=== PATIENT | male | born 1960 | race Caucasian/White ===

== ENCOUNTER 2016-11-04 13:15 | Emergency (ER) | payer MEDICAID, OTHER ==
--- NOTE | 2016-11-04 13:14 | EDPHY ---
H & P Constitutional: Initial Vital Signs Temperature (C) 36.9 C 11/04/16 13:27 Heart Rate 108 H 11/04/16 13:27 Respiratory Rate 18 11/04/16 13:27 Blood Pressure 120/71 11/04/16 13:27 O2 Sat (%) 90 L 11/04/16 13:27 O2 Delivery Mode Room Air Allergies/Adverse Reactions: No Known Allergies Allergy (Unverified 10/27/14 20:52) Home Medications: Medication Instructions Recorded Paliperidone [Invega 9mg ER (*)] 9 mg PO DAILY #30 tab.er 11/12/14 Lisinopril [Zestril 10 mg (*)] 10 mg PO DAILY #30 tab 02/24/15 Paliperidone Palmitate [Invega 156 mg IM Q28D #2 syr 02/24/15 Sustenna (*)] Paliperidone [Invega 9mg ER (*)] 9 mg PO DAILY #30 tab.er 02/24/15 Medical Decision Making ED Course/Re-evaluation: CHIEF COMPLAINT: Psychiatric evaluation, AMS HISTORY OF PRESENT ILLNESS: The patient is a 56y/o male, with a history of schizophrenia, arriving via EMS for altered mentation. Per EMS, his parents found him staring at wall and chain-smoking in his apartment today. He would not respond to external stimuli apart from pain so they contacted EMS. He was unable to follow commands and not cooperative and required Haldol and Versed to keep him safe during transport as he was trying to climb out of the ambulance. His parents told EMS one of the patient's medications was changed yesterday, but they are unsure which medication. The patient is unable to contribute to history due to altered mentation. REVIEW OF SYSTEMS: Patient unable to contribute due to presentation. PHYSICAL EXAM: General Appearance: Alert, mumbling, unable to converse or follow commands Head: Atraumatic without scalp tenderness or obvious injury Eyes: Pupils equal, round, reactive to light and accommodation, EOMI, no trauma , no injection. Nose: Atraumatic, no rhinorrhea, clear. Throat: Mucus membranes moist. Neck: Supple, atraumatic Respiratory: No retractions, no distress, no wheezes, and no accessory muscle use. Lungs are clear to auscultation bilaterally. Cardiovascular: Regular rate and rhythm, no murmurs, rubs, or gallops. Good capillary refill all extremities. Gastrointestinal: Abdomen is soft, non-distended, no masses, no rebound, no guarding, no peritoneal signs. Musculoskeletal: Normal active ROM of all extremities, atraumatic. Neurological: Alert, mumbling, unable to converse or follow commands, moving all 4 extremities equally. Skin: No rashes, good turgor, no nodules on palpation. Past medical history: Schizophrenia Past surgical history: unknown Family history: unknown Social history: Lives in [place], daily smoker. DIFFERENTIAL DIAGNOSIS: The differential diagnosis for the patient's symptoms included but was not limited to schizophrenia, psychosis, functional and major depression, situational depression, medication side effect, drugs, and alcohol abuse. MEDICAL DECISION MAKING: Patient is in no acute distress and is hemodynamically stable. Detainer placed. We are awaiting psychiatric team's evaluation. Patient has known history of psychiatric disorders and is here for evaluation. Principal Software Engineer recommended in-patient care. Placement pending. (Jaquan Cosme) Other Provider: 10:45 a.m. patient accepted at [facility] by Dr. Villegas. Transfer paperwork completed. (Indio Bo) Care Turn Over: 2300 Care assumed by me pending placement. 0700 patient signed out to Dr. Bo pending placement. No issues during my care this patient overnight (Willie Thomas) - Data Points Laboratory Results: Laboratory Results 11/04/16 13:45 11/04/16 13:25 Departure - Departure Disposition: Other Psych, Not [facility] Clinical Impression: Chronic paranoid schizophrenia Condition: Fair Referrals: Patient,NotPresent [Unknown] - As per Instructions Report Scribed for: Jaquan Cosme Report Scribed by: Luz Baires Date of Report: 11/04/16 Time of Report: 13:36
[2016-11-04 13:51] LABS: ANION GAP 16 mEq/L (8-16); CALCIUM 9.3 mg/dL (8.5-10.4); CARBON DIOXIDE 18 mEq/l (22-31); CHLORIDE 103 mEq/L (97-110); CREATININE 1.1 mg/dL (0.7-1.3); ETHANOL SERUM < 10 mg/dL (0-10); GLOMERULAR FILTRATION RATE > 60; GLUCOSE 110 mg/dL (70-100); POTASSIUM 3.8 mEq/L (3.5-5.2); SALICYLATE < 1.0 mg/dL (2.0-20.0); SODIUM 137 mEq/L (134-144)
[2016-11-04 13:54] LABS: % IMMATURE GRANULYOCYTES 0.3 % (0.0-1.1); ABSOLUTE IMMATURE GRANULOCYTES 0.02 10^3/uL (0.00-0.10); ADD DIFF? NO; ADD MORPH? NO; ADD SCAN? NO; ATYPICAL LYMPHOCYTE FLAG 10 (0-99); FRAGMENT RBC FLAG 0 (0-99); HEMATOCRIT 45.1 % (40.0-51.0); HEMOGLOBIN 15.5 g/dL (13.7-17.5); LEFT SHIFT FLG 0 (0-99); LIPEMIA HEMOLYSIS FLAG 90 (0-99); MEAN CELL HEMOGLOBIN 29.1 pg (27.9-34.1); MEAN CELL HEMOGLOBIN CONCENTR. 34.4 g/dL (32.4-36.7); MEAN CELL VOLUME 84.8 fL (81.5-99.8); MEAN PLATELET VOLUME 9.2 fL (8.7-11.7); PLATELET CLUMPS FLAG 0 (0-99); PLATELET COUNT 211 10^3/uL (150-400); RED BLOOD CELL COUNT 5.32 10^6/uL (4.40-6.38); RED CELL DISTRIBUTION WIDTH 12.3 % (11.5-15.2)
[2016-11-05 08:15] VITALS: RESP 16; TEMP 98.2
[2016-11-05 14:36] VITALS: BP 102/73; PULSE 95; O2SAT 96
== END 2016-11-05 14:32 ==
LOC: EDUNIT#
DX: F20.0 Paranoid schizophrenia (principal); F17.200 Nicotine dependence, unspecified, uncomplicated
CPT/HCPCS: 80305; G0480

== ENCOUNTER 2018-03-05 18:00 | Inpatient (IN) | payer MEDICAID, OTHER ==
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
[2018-03-05 18:50] LABS: PLATELET COUNT 253 10^3/uL (150-400)
[2018-03-06] MEDS ORDERED: OLANZapine DISINTEGR 5 MG TAB PO PRN (01:00)
[2018-03-06] MEDS ORDERED: NICOTINE POLACRILEX 2 MG GUM B PRN (01:00)
[2018-03-06] MEDS ORDERED: LORazepam 0.5 MG TAB PO PRN (01:00)
[2018-03-06] MEDS ORDERED: ACETAMINOPHEN 325 MG TAB PO PRN (01:00)
[2018-03-06] MEDS ORDERED: MAG HYDROX/AL HYDROX/SIMETH 30 ML UDCUP PO PRN (01:00)
[2018-03-06] MEDS ORDERED: MAGNESIUM HYDROXIDE 30 ML UDCUP PO PRN (01:00)
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
--- NOTE | 2018-03-06 17:21 | PDMN ---
Medical Necessity Medical necessity: [facility] [id number] Schizophrenia Spectrum Disorders, Adult: Inpatient Care: 57 yo w/ schizophrenia, paranoid type, chronic w/ acute exacerbation; homelessness, cannabis use d/o, on M1 hold.
--- NOTE | 2018-03-07 15:01 | ASMTCMCOM ---
CM Note CM Note Notes: The patient refused to participate in clinical treatment team rounds; reason unknown. According to [facility] staff, he rated himself zero out of ten on the suicide precaution scale and is reporting increased sleep. The patient reported that his parents had him "put in here." He is participating in groups and meal times. The patient reported that he is an open client with [facility]. His providers are Fam Glass, and Dr. Roy. This conventional mortgage underwriter will coordinate treatment and follow up care with [facility] Inpatient LiaisonYasmin. Date Signed: 03/07/2018 03:00 PM Electronically Signed By:Anay Ambrose
--- NOTE | 2018-03-07 16:55 | SOAPPROG ---
SOAP Progress Note Assessment/Plan: Assessment: Plan: Subjective: Pt seen, discussed with staff. Sleeping most of the day today, refused to attend Treatment Team meeting. REmains pleasant and interactive, though rather disorganized and pressured. Compliant with treatments. Objective: Vital Signs Temp Pulse Resp BP Pulse Ox 36.6 C 90 15 121/79 H 97 03/06/18 01:10 03/07/18 06:00 03/07/18 06:00 03/07/18 06:00 03/07/18 06:00 MSE: Calm, appears sleepy. Affect is slightly elevated, jovial, though less so than before. Mood is "good." TP is linear at times, though tangential at others. TC reveals no mention of delusions or halluc's. - Time Spent With Patient Time Spent With Patient: 15" ICD10 Worksheet Patient Problems: Problems Problem Status Onset Schizophrenia Acute Cannabis abuse Acute Schizo-affective psychosis Acute
--- NOTE | 2018-03-08 15:29 | ASMTCMCOM ---
CM Note CM Note Notes: The patient reported that is doing well as evidenced by "eating and sleeping." The patient has poor ADLs. The patient was observed pacing the hallway of the unit. The patient is under the impression that his mother and father are working to find him stable housing although the patient has not spoken with them since his hospital admission. Date Signed: 03/08/2018 03:28 PM Electronically Signed By:Anay Ambrose
--- NOTE | 2018-03-08 16:32 | SOAPPROG ---
SOAP Progress Note Assessment/Plan: Assessment: Plan: 03/08/18 16:33 Psychosis: SOme improvement. [facility]. P's informs us he is not on a certification at this time. Will allow him to sign in voluntarily and continue d/c planning. Subjective: Pt seen, discussed with staff. Pacing in halls, appears more agitated. He is bright and interactive when I approach him, however. Noted to pace most of morning, talking to himself. No behavioral issues noted. Objective: Vital Signs Temp Pulse Resp BP Pulse Ox 36.4 C 81 16 122/89 H 93 03/08/18 06:00 03/08/18 06:00 03/08/18 06:00 03/08/18 06:00 03/08/18 06:00 MSE: Moderately agitated, appropriately interactive. Affect is elevated, expansive. Mood is "great." TP is tangential. TC reveals some grandiose thoughts, internal preoccupation with possible RIS. - Time Spent With Patient Time Spent With Patient: 15" ICD10 Worksheet Patient Problems: Problems Problem Status Onset Schizophrenia Acute Cannabis abuse Acute Schizo-affective psychosis Acute
--- NOTE | 2018-03-09 14:40 | ASMTBHFAM ---
Notes Note: Notes: This marketing writer checked in with Chris's father, also named Chris, who reported that he recently spoke with Kayla Beraux ([phone], [phone]. [phone]) from [facility]. Per Kayla, there is a pretty good chance the patient could get another place. He mentioned the reason the patient was "kicked out of there was because it is nearby the homeless [facility]ci and a bunch of homeless people invaded his apartment and took over more or less." He said he might have housing available in a different location that might be more appropriate for the patient. The patient's behavioral issues decrease when he is medicated and removing him from the environment may additionally support his success. The patient's parents, Chris and Renetta Dove, visited the patient on the unit today. The patient reported the visited went well. This marketing writer spoke with Kayla, who reported that the patient needs to find a way to dispose of the remainder of belongings in his apartment or sign a form allowing [facility] to dispose of them in order to avoid the eviction process. The patient reported that he did not want to take a shower; he stated "If you had been caught between two streams of water [place] you wouldn't want to shower either." He reported that he feels like he is "always late for the next shower" and that the "layer of dirt and oil protects" him. Date Signed: 03/09/2018 02:40 PM Electronically Signed By:Anay Ambrose
--- NOTE | 2018-03-09 16:16 | SOAPPROG ---
SOAP Progress Note Assessment/Plan: Assessment: Plan: 03/08/18 16:33 Psychosis: SOme improvement. [facility]. [facility]'s informs us he is not on a certification at this time. Will allow him to sign in voluntarily and continue d/c planning. 03/09/18 16:16 Psychosis: May be approaching baseline. Will CCM, finalize d/c plan. Subjective: Pt seen, discussed with staff. Friendly and interactive. Offers no c/o's. Agreeable to plan to continue current meds and await assistance with housing. No behavioral issues. Objective: Vital Signs Temp Pulse Resp BP Pulse Ox 36.7 C 87 16 123/86 H 94 03/09/18 06:00 03/09/18 06:00 03/09/18 06:00 03/09/18 06:00 03/09/18 06:00 MSE: Marginally groomed, pleasant and cooperative. Affect is euthymic, almost elevated. Mood is "good." TP is linear for brief periods, then disorganized. TC reveals continued poor reality testing. - Time Spent With Patient Time Spent With Patient: 15" ICD10 Worksheet Patient Problems: Problems Problem Status Onset Schizophrenia Acute Cannabis abuse Acute Schizo-affective psychosis Acute
--- NOTE | 2018-03-10 13:52 | ASMTCMCOM ---
CM Note CM Note Notes: Pt. reports feeling "good". Pt. stated he slept "good, good, good". Pt. reports eating well and attending groups. Pt. stated he is going to focus on "exercise and resting instead [of groups]". Pt. stated he is due to get his long acting injectable on 03/22/18. Pt. stated currently his old assisted living manager is looking for a new apartment for pt. Pt. denied SI, HI, AVH and paranoia. Pt. presents as alert, calm, good eye contact, cooperative, possibly delayed, malodorous, and with a mostly pleasant demeanor. Staff report pt. sleeping 12 hours, not attending groups, and being medication compliant. Date Signed: 03/10/2018 01:52 PM Electronically Signed By:Lakeisha Hollis
--- NOTE | 2018-03-10 16:23 | SOAPPROG ---
SOAP Progress Note Assessment/Plan: Assessment: Per Dr. Zuniga's most recent note: 03/08/18 16:33 Psychosis: SOme improvement. CCM. [facility]'s informs us he is not on a certification at this time. Will allow him to sign in voluntarily and continue d/c planning. 03/09/18 16:16 Psychosis: May be approaching baseline. Will CCM, finalize d/c plan. Subjective: Pt seen, discussed with staff. Friendly and interactive. Offers no c/o's. Agreeable to plan to continue current meds and await assistance with housing. No behavioral issues. Plan: 03/10/18 16:19 1. Patient continues to be very agreeable, pleasant and easily engaged in conversation. 2. Patient not performing ADL's adequately. Says he doesn't want to be clean. 3. Slept 12 hrs and ate 100% of meals. 4. Recent progress notes indicate patient likely at baseline. May d/c on Monday. 5. F/U will be with Dr. Roy at [facility]. Next CARIAS on 03/22/18. Subjective: Patient is extremely talkative. He has not showered or bathed since admission and remains disheveled and malodorous. When asked by staff about his hygiene, patient says, "I like to be dirty." He is not attending groups or participating in milieu activities. He says he's here to focus on "exercise and rest." Patient denies AH/VH and denies SI/HI. MD does not observe any evidence of paranoia or responding to internal/external stimuli. Objective: Vital Signs Temp Pulse Resp BP Pulse Ox 36.5 C 79 14 116/78 93 03/10/18 06:00 03/10/18 06:00 03/10/18 06:00 03/10/18 06:00 03/10/18 06:00 MSE: Affect: Pleasant, cheerful Mood: "Good" TP: Tangential TC: Denies any SI/HI, no paranoia Perception: Denies any AH/VH, no RIS Insight/Judgment: Poor a/e/b refusal to shower/clean - Time Spent With Patient Time Spent With Patient: 15" - Pending Discharge Pending Discharge Within 24 Hours: No Pending Discharge Within 48 Hours: Yes Pending Discharge Date: 03/12/18 (Possible d/c on Monday) Pending Discharge Time: 11:00 ICD10 Worksheet Patient Problems: Problems Problem Status Onset Schizophrenia Acute Cannabis abuse Acute Schizo-affective psychosis Acute
--- NOTE | 2018-03-11 16:31 | SOAPPROG ---
SOAP Progress Note Assessment/Plan: Assessment: Per Dr. Zuniga's most recent note: 03/08/18 16:33 Psychosis: SOme improvement. CCM. [facility]'s informs us he is not on a certification at this time. Will allow him to sign in voluntarily and continue d/c planning. 03/09/18 16:16 Psychosis: May be approaching baseline. Will CCM, finalize d/c plan. Subjective: Pt seen, discussed with staff. Friendly and interactive. Offers no c/o's. Agreeable to plan to continue current meds and await assistance with housing. No behavioral issues. Plan: 03/10/18 16:19 1. Patient continues to be very agreeable, pleasant and easily engaged in conversation. 2. Patient not performing ADL's adequately. Says he doesn't want to be clean. 3. Slept 12 hrs and ate 100% of meals. 4. Recent progress notes indicate patient likely at baseline. May d/c on Monday. 5. F/U will be with Dr. Roy at [facility]. Next CARIAS on 03/22/18. 03/11/18 16:28 1. Patient isolates in his room most of the day. 2. Patient still refuses to shower or clean himself. He is quite malodorous. 3. Sleeping a lot on unit (13 hrs last night). Eating well (100%). 4. Patient's only medication is IM prolixin q3wks. Next dose supposedly due on 03/22. Does not take any PO meds. 5. [facility] working on finding new apartment for patient after recent eviction. Currently homeless. Subjective: Patient sitting in his room staring out window. He has been extremely talkative and generally pleasant to interact with. He told staff his goals were to "eat, sleep and exercise." He has been sleeping a lot (> 12 hrs last 2 nights). He says he needs to "catch up" on his sleep. He c/o disturbing dream last night about his twin brother. He says it was "bittersweet" b/c he misses his brother. Patient's manager rn case through [facility] is trying to find him another apartment b/c he is being evicted from his current one. Patient says he doesn't take any PO meds b/c they don't "work for me." He is only on CARIAS Prolixin. Objective: Vital Signs Temp Pulse Resp BP Pulse Ox 37.0 C 68 14 126/88 H 95 03/11/18 06:00 03/11/18 06:00 03/11/18 06:00 03/11/18 06:00 03/11/18 06:00 MSE: Affect: Very pleasant and talkative Mood: "OK" TP: Disorganized, loose TC: Denies any SI/HI, no paranoid delusion Perception: Denies any AH/VH Insight/Judgment: Improving - Time Spent With Patient Time Spent With Patient: 15" - Pending Discharge Pending Discharge Within 24 Hours: Yes Pending Discharge Date: 03/12/18 (Possible d/c on Monday) Pending Discharge Time: 11:00 ICD10 Worksheet Patient Problems: Problems Problem Status Onset Schizophrenia Acute Cannabis abuse Acute Schizo-affective psychosis Acute
--- NOTE | 2018-03-12 14:22 | ASMTCMCOM ---
CM Note CM Note Notes: Pt. reports "doing okay". Pt. stated he slept "good, good". Pt. stated he is eating well and attending groups. Pt. reports no issues with his current medications. Pt. stated his goal for the day is to "eat, sleep, & exercise". Pt. stated he exercises by walking. CC offered pt. new clothes, but pt stated he was fine in scrubs. Pt stated he has not heard any updates on his housing situations. Pt. stated he would like to stay in [place], adding he has always lived in [place],. Pt. denied SI, HI, AVH and paranoia. Pt. stated he is a twin, adding his brother two years ago. Pt. stated he dreamt about his brother last night, stating his brother was working outside, and did not have a head. Pt. stated he liked seeing his brother, but made him miss him. Pt. presents as alert, upbeat, good eye contact, malodorous laughing at times, and cooperative. Staff report pt. sleeping 13 hours, being medication compliant, and not willing to shower or change clothes. Date Signed: 03/11/2018 02:55 PM Electronically Signed By:Lakeisha Hollis
--- NOTE | 2018-03-12 15:38 | SOAPPROG ---
SOAP Progress Note Assessment/Plan: Assessment: Plan: 03/08/18 16:33 Psychosis: SOme improvement. [facility]. [facility]'s informs us he is not on a certification at this time. Will allow him to sign in voluntarily and continue d/c planning. 03/09/18 16:16 Psychosis: May be approaching baseline. Will [facility], finalize d/c plan. 03/12/18 15:40 Psychosis: No change. CCM. Continue d/c planning. Subjective: Pt seen, discussed with staff, chart reviewed. Reports feeling "great." Remains rather activated, talkative, though compliant and pleasant. Reviewed plan to seek transitional housing for him. He is agreeable to this. Objective: Vital Signs Temp Pulse Resp BP Pulse Ox 36.4 C 77 14 119/71 97 03/12/18 06:00 03/12/18 06:00 03/12/18 06:00 03/12/18 06:00 03/12/18 06:00 MSE: Moderately activated, coop, interactive. Speech is voluminous, rapid, pressured. Affect is slightly elevated. Mood is "good.' TP is linear at times , tangential at others. TC reveals no overt psychosis. - Time Spent With Patient Time Spent With Patient: 15" ICD10 Worksheet Patient Problems: Problems Problem Status Onset Schizophrenia Acute Cannabis abuse Acute Schizo-affective psychosis Acute
--- NOTE | 2018-03-14 11:45 | ASMTBHDC ---
Notes Note: Notes: Pt. reports feeling "good". Pt. stated he slept "good, good, good". Pt. reports eating well and having no issues with his medications. Pt. stated he is not attending groups, but "rather walk around and get rest". Pt. reports no issues while on the unit. Pt. stated he has not spoke with the [employer] yet. Pt. denied having any goals for day, stating "just the same old". Pt. denied SI, HI, AVH and paranoia. Pt. presents as alert, upbeat, friendly, good eye contact, malodorous and cooperative. Staff report pt. sleeping 12 hours, not attending groups, and being medication compliant. Date Signed: 03/14/2018 11:45 AM Electronically Signed By:Lakeisha Hollis
--- NOTE | 2018-03-14 11:50 | ASMTBHDC ---
Notes Note: Notes: CC spoke with Pt's engine manager, Kayla Booth [phone]. Kayla stated pt. is being asked to leave his apartment. Kayla requested a signed letter from pt. giving permission to remove his furniture from the apartment and stating the pt. have vacated the apartment. Kayla stated without this letter the pt. will have to be evicted. Pt. signed the needed letter and it was faxed to Kayla. Kayla stated [facility] is not willing to re-rent to the pt. Pt. is now homeless. CC reached out to pt's housing caser shoe parts, Smith Steele ([phone]) and left a message to please call back. Date Signed: 03/14/2018 11:49 AM Electronically Signed By:Lakeisha Hollis
--- NOTE | 2018-03-14 15:19 | SOAPPROG ---
SOAP Progress Note Assessment/Plan: Assessment: Plan: 03/08/18 16:33 Psychosis: SOme improvement. CCM. [facility]'s informs us he is not on a certification at this time. Will allow him to sign in voluntarily and continue d/c planning. 03/09/18 16:16 Psychosis: May be approaching baseline. Will CCM, finalize d/c plan. 03/12/18 15:40 Psychosis: No change. CCM. Continue d/c planning. 03/14/18 15:19 Psychosis: Stable. CCM. Subjective: LATE ENTRY FOR 03/13/18. Pt seen, discussed with staff, interviewed in Treatment Team meeting. He states he is happy to be in the hospital and does not believe he can care for himself on his own. Compliant with all therapies, though continues to refuse to shower. No behavioral issues. Objective: Vital Signs Temp Pulse Resp BP Pulse Ox 36.6 C 80 16 120/75 94 03/14/18 06:00 03/14/18 06:00 03/14/18 06:00 03/14/18 06:00 03/14/18 06:00 MSE: Calm, coop. Affect bright, smiling, stable. Mood is "good." TP is linear at times, disorganized at others. TC reveals no overt psychosis. - Time Spent With Patient Time Spent With Patient: 25" ICD10 Worksheet Patient Problems: Problems Problem Status Onset Schizophrenia Acute Cannabis abuse Acute Schizo-affective psychosis Acute
--- NOTE | 2018-03-14 15:23 | SOAPPROG ---
SOAP Progress Note Assessment/Plan: Assessment: Plan: 03/08/18 16:33 Psychosis: SOme improvement. [facility]. [facility]'s informs us he is not on a certification at this time. Will allow him to sign in voluntarily and continue d/c planning. 03/09/18 16:16 Psychosis: May be approaching baseline. Will [facility], finalize d/c plan. 03/12/18 15:40 Psychosis: No change. [facility]. Continue d/c planning. 03/14/18 15:19 Psychosis: Stable. CCM. 03/14/18 15:22 Psychosis: Stable. CCM. Continue d/c planning. Pt remains gravely disabled due to chronic mental illness and is not able to safely d/c to own recognizance. Would also not be able to tolerate [facility] environment. Subjective: Pt seen, discussed with staff. Reports feeling "really good." Smiling and happy. No c/o's. Objective: Vital Signs Temp Pulse Resp BP Pulse Ox 36.6 C 80 16 120/75 94 03/14/18 06:00 03/14/18 06:00 03/14/18 06:00 03/14/18 06:00 03/14/18 06:00 MSE: Poorly groomed, malodorous. Affect is elevated with almost a hebephrenic grin. Mood is "good." TP is generally linear. TC reveals no overt psychosis. - Time Spent With Patient Time Spent With Patient: 15" ICD10 Worksheet Patient Problems: Problems Problem Status Onset Schizophrenia Acute Cannabis abuse Acute Schizo-affective psychosis Acute
--- NOTE | 2018-03-15 17:42 | SOAPPROG ---
SOAP Progress Note Assessment/Plan: Assessment: Plan: 03/08/18 16:33 Psychosis: SOme improvement. CCM. P's informs us he is not on a certification at this time. Will allow him to sign in voluntarily and continue d/c planning. 03/09/18 16:16 Psychosis: May be approaching baseline. Will CCM, finalize d/c plan. 03/12/18 15:40 Psychosis: No change. CCM. Continue d/c planning. 03/14/18 15:19 Psychosis: Stable. CCM. 03/14/18 15:22 Psychosis: Stable. CCM. Continue d/c planning. Pt remains gravely disabled due to chronic mental illness and is not able to safely d/c to own recognizance. Would also not be able to tolerate retirement environment. 03/15/18 17:41 Psychosis: Stable. Doing well. CCM. Subjective: Pt seen, discussed with staff. Reports feeling "just great." Upbeat and friendly. Continues to "wait for a plan." No behavioral issues. Objective: Vital Signs Temp Pulse Resp BP Pulse Ox 36.3 C 90 20 118/83 H 95 03/15/18 06:00 03/15/18 06:00 03/15/18 06:00 03/15/18 06:00 03/15/18 06:00 MSE: Poorly groomed, malodorous. Affect is bright, elevated. Mood is "good." TP is tangential. TC reveals continued poor reality testing. - Time Spent With Patient Time Spent With Patient: 15" ICD10 Worksheet Patient Problems: Problems Problem Status Onset Schizophrenia Acute Cannabis abuse Acute Schizo-affective psychosis Acute
--- NOTE | 2018-03-16 12:19 | ASMTBHDC ---
Notes Note: Notes: CC left another message for Smithfoster Hyltons ([phone]) asking for a call back VENANCIO. Date Signed: 03/16/2018 12:18 PM Electronically Signed By:Mayda Levy
--- NOTE | 2018-03-16 12:35 | ASMTCMCOM ---
CM Note CM Note Notes: CC checked in with ct. who reported that he is doing fine. Ct. is still pretty malodorous but is pleasant and cooperative. He reported that he lost his housing and is waiting to find out what housing options he may have. Asked him if he can stay with his parents until finding a place to live and he wasn't sure if this is possible. He said that he can use his parents phone to call properties Date Signed: 03/16/2018 12:34 PM Electronically Signed By:Mayda Levy
--- NOTE | 2018-03-16 16:17 | SOAPPROG ---
SOAP Progress Note Assessment/Plan: Assessment: Plan: 03/08/18 16:33 Psychosis: SOme improvement. [facility]. P's informs us he is not on a certification at this time. Will allow him to sign in voluntarily and continue d/c planning. 03/09/18 16:16 Psychosis: May be approaching baseline. Will [facility], finalize d/c plan. 03/12/18 15:40 Psychosis: No change. CCM. Continue d/c planning. 03/14/18 15:19 Psychosis: Stable. CCM. 03/14/18 15:22 Psychosis: Stable. CCM. Continue d/c planning. Pt remains gravely disabled due to chronic mental illness and is not able to safely d/c to own recognizance. Would also not be able to tolerate assisted environment. 03/15/18 17:41 Psychosis: Stable. Doing well. CCM. 03/16/18 16:18 Psychosis: Stable. [facility]. Subjective: Pt seen, discussed with staff. Remains cooperative, pleasantly interactive with others. No behavioral issues except continued refusal to shower. Objective: Vital Signs Temp Pulse Resp BP Pulse Ox 36.8 C 76 16 108/69 94 03/16/18 06:00 03/16/18 06:00 03/16/18 06:00 03/16/18 06:00 03/16/18 06:00 MSE: Calm, pleasant and cooperative. AFfect is bright, smiling. Mood is "good." TP generally linear. TC reveals no overt psychosis. No SI/HI/. - Time Spent With Patient Time Spent With Patient: 15" ICD10 Worksheet Patient Problems: Problems Problem Status Onset Schizophrenia Acute Cannabis abuse Acute Schizo-affective psychosis Acute
--- NOTE | 2018-03-17 17:50 | SOAPPROG ---
SOAP Progress Note Assessment/Plan: Assessment: Per Dr. Zuniga's most recent note: 03/12/18 15:40 Psychosis: No change. CCM. Continue d/c planning. 03/14/18 15:19 Psychosis: Stable. CCM. 03/14/18 15:22 Psychosis: Stable. CCM. Continue d/c planning. Pt remains gravely disabled due to chronic mental illness and is not able to safely d/c to own recognizance. Would also not be able to tolerate [facility] environment. 03/15/18 17:41 Psychosis: Stable. Doing well. CCM. 03/16/18 16:18 Psychosis: Stable. CCM. Subjective: Pt seen, discussed with staff. Remains cooperative, pleasantly interactive with others. No behavioral issues except continued refusal to shower. PLAN: 03/17/18 17:47 1. No change from last weekend. Stable. 2. Pleasant and talkative. No acute psychotic or mood sxs. 3. Next Prolixin IM due 03/20/18. 4. Waiting on placement. Subjective: Patient remains calm, pleasant and eager to socialize and talk to peers/staff. He denies any acute psychotic or mood related sxs. He denies AH/VH, SI/HI. Objective: Vital Signs Temp Pulse Resp BP Pulse Ox 36.6 C 84 16 109/76 95 03/17/18 06:00 03/17/18 06:00 03/17/18 06:00 03/17/18 06:00 03/17/18 06:00 MSE: Affect: Pleasant, euthymic Mood: "Good" TP: Tangential TC: Denies any SI/HI Insight/Judgment: Fair - Time Spent With Patient Time Spent With Patient: 15" - Pending Discharge Pending Discharge Within 24 Hours: No Pending Discharge Within 48 Hours: No ICD10 Worksheet Patient Problems: Problems Problem Status Onset Schizophrenia Acute Cannabis abuse Acute Schizo-affective psychosis Acute
--- NOTE | 2018-03-18 13:42 | ASMTCMCOM ---
LIVIA Note CM Note Notes: The patient is not attending groups. He reported meeting his "goals: completing meals and getting good sleep." Date Signed: 03/18/2018 01:42 PM Electronically Signed By:Anay Ambrose
--- NOTE | 2018-03-18 18:10 | SOAPPROG ---
SOAP Progress Note Assessment/Plan: Assessment: Per Dr. Zuniga's most recent note: 03/12/18 15:40 Psychosis: No change. CCM. Continue d/c planning. 03/14/18 15:19 Psychosis: Stable. CCM. 03/14/18 15:22 Psychosis: Stable. CCM. Continue d/c planning. Pt remains gravely disabled due to chronic mental illness and is not able to safely d/c to own recognizance. Would also not be able to tolerate detention environment. 03/15/18 17:41 Psychosis: Stable. Doing well. CCM. 03/16/18 16:18 Psychosis: Stable. [facility]. Subjective: Pt seen, discussed with staff. Remains cooperative, pleasantly interactive with others. No behavioral issues except continued refusal to shower. PLAN: 03/17/18 17:47 1. No change from last weekend. Stable. 2. Pleasant and talkative. No acute psychotic or mood sxs. 3. Next Prolixin IM due 03/20/18. 4. Waiting on placement. 03/18/18 18:07 1. Reports "good sleep." 2. Not attending groups. Has not showered or washed his clothes since admission. 3. Due for next Prolixin IM on 03/20/18 4. Waiting for [facility] to find him an apartment. Subjective: Patient reports he is getting "good sleep" while in hospital. He said his goals were "sleep, eat and exercise." He slept 11 hrs last night and has been eating 100% of meals. He refuses to attend group therapy and has very poor hygiene, but says he "never takes a shower" and rarely washes his clothes at home. He is waiting for [facility] to find him a new apartment b/c he got "kicked" out of his last one. Objective: Vital Signs Temp Pulse Resp BP Pulse Ox 36.5 C 76 16 101/70 93 03/18/18 06:00 03/18/18 06:00 03/18/18 06:00 03/18/18 06:00 03/18/18 06:00 MSE: Affect: Smiling, euthymic Mood: "OK" TP: Tangential TC: Denies SI/HI Insight/Judgment: Poor - Time Spent With Patient Time Spent With Patient: 15" - Pending Discharge Pending Discharge Within 24 Hours: No Pending Discharge Within 48 Hours: No ICD10 Worksheet Patient Problems: Problems Problem Status Onset Schizophrenia Acute Cannabis abuse Acute Schizo-affective psychosis Acute
--- NOTE | 2018-03-19 15:01 | SOAPPROG ---
SOAP Progress Note Assessment/Plan: Assessment: Plan: 03/08/18 16:33 Psychosis: SOme improvement. [facility]. [facility]'s informs us he is not on a certification at this time. Will allow him to sign in voluntarily and continue d/c planning. 03/09/18 16:16 Psychosis: May be approaching baseline. Will [facility], finalize d/c plan. 03/12/18 15:40 Psychosis: No change. CCM. Continue d/c planning. 03/14/18 15:19 Psychosis: Stable. CCM. 03/14/18 15:22 Psychosis: Stable. CCM. Continue d/c planning. Pt remains gravely disabled due to chronic mental illness and is not able to safely d/c to own recognizance. Would also not be able to tolerate [place] [facility] environment. 03/15/18 17:41 Psychosis: Stable. Doing well. CCM. 03/16/18 16:18 Psychosis: Stable. CCM. 03/19/18 15:00 Psychosis: No change. CCM. Gets Prolixin dec tomorrow. Continue d/c planning. Subjective: Pt seen, discussed with staff, chart reviewed. No change in behaviors. Doing well in milieu, keeping mainly to himself with a high level of internal preoccupation. Always pleasant and engaging when spoken to, however. Objective: Vital Signs Temp Pulse Resp BP Pulse Ox 36.6 C 76 16 129/76 H 93 03/19/18 06:00 03/19/18 06:00 03/19/18 06:00 03/19/18 06:00 03/19/18 06:00 MSE: Poorly groomed, malodorous. Activity and speech are nl. Affect is bright , smiling. Mood is "good." TP is linear at times, though tangential eventually. TC reveals disorganized though and RIS. ICD10 Worksheet Patient Problems: Problems Problem Status Onset Schizophrenia Acute Cannabis abuse Acute Schizo-affective psychosis Acute
[2018-03-20] MEDS ORDERED: FLUPHENAZINE DECANOATE 25 MG/ML 5 ML VIAL IM ONE (09:00)
--- NOTE | 2018-03-20 10:56 | ASMTCMCOM ---
CM Note CM Note Notes: CC checked in with ct. He was initially pleasant and reported that he is doing fine. Ct. became upset when this CC spoke with him about his heygiene and suggested he takes a shower and change his clothes. Ct. said that he hates water and that he doesn't want to change his clothes. When CC noted that ct. hygiene might be bothering others on the unit he pointed out that he keeps to himself in his room. Date Signed: 03/20/2018 10:56 AM Electronically Signed By:Mayda Levy
--- NOTE | 2018-03-20 20:42 | SOAPPROG ---
SOAP Progress Note Assessment/Plan: Assessment: Plan: 03/08/18 16:33 Psychosis: SOme improvement. [facility]. [facility]'s informs us he is not on a certification at this time. Will allow him to sign in voluntarily and continue d/c planning. 03/09/18 16:16 Psychosis: May be approaching baseline. Will [facility], finalize d/c plan. 03/12/18 15:40 Psychosis: No change. CCM. Continue d/c planning. 03/14/18 15:19 Psychosis: Stable. CCM. 03/14/18 15:22 Psychosis: Stable. CCM. Continue d/c planning. Pt remains gravely disabled due to chronic mental illness and is not able to safely d/c to own recognizance. Would also not be able to tolerate prison environment. 03/15/18 17:41 Psychosis: Stable. Doing well. CCM. 03/16/18 16:18 Psychosis: Stable. CCM. 03/19/18 15:00 Psychosis: No change. CCM. Gets Prolixin dec tomorrow. Continue d/c planning. 03/21/18 12:23 Psychosis: Stable. CCM. Continue d/c planning. Subjective: Pt seen, discussed with staff. Offers no c/o's. Continues to refuse to bathe, though RN was able to persuade him to soak his feet today. Objective: Vital Signs Temp Pulse Resp BP Pulse Ox 36.7 C 69 18 104/66 95 03/20/18 06:00 03/20/18 06:00 03/20/18 06:00 03/20/18 06:00 03/20/18 06:00 MSE: Poorly groomed, malodorous. Affect is euthymic, smiling. Mood is "good. " TP is generally linear. TC reveals odd somatic beliefs in regards to bathing with idiosyncratic references. He also voices paranoid thoughts, mainly towards family. - Time Spent With Patient Time Spent With Patient: 15" ICD10 Worksheet Patient Problems: Problems Problem Status Onset Schizophrenia Acute Cannabis abuse Acute Schizo-affective psychosis Acute
--- NOTE | 2018-03-21 12:26 | SOAPPROG ---
SOAP Progress Note Assessment/Plan: Assessment: Plan: 03/08/18 16:33 Psychosis: SOme improvement. [facility]. [facility]'s informs us he is not on a certification at this time. Will allow him to sign in voluntarily and continue d/c planning. 03/09/18 16:16 Psychosis: May be approaching baseline. Will [facility], finalize d/c plan. 03/12/18 15:40 Psychosis: No change. CCM. Continue d/c planning. 03/14/18 15:19 Psychosis: Stable. CCM. 03/14/18 15:22 Psychosis: Stable. CCM. Continue d/c planning. Pt remains gravely disabled due to chronic mental illness and is not able to safely d/c to own recognizance. Would also not be able to tolerate assisted environment. 03/15/18 17:41 Psychosis: Stable. Doing well. CCM. 03/16/18 16:18 Psychosis: Stable. CCM. 03/19/18 15:00 Psychosis: No change. CCM. Gets Prolixin dec tomorrow. Continue d/c planning. 03/21/18 12:23 Psychosis: Stable. CCM. Continue d/c planning. 03/21/18 12:26 Psychosis: Stable overall. CCM. Subjective: Pt seen, discussed with staff, interviewed in Treatment Team meeting. He remains pleasant and cooperative, though quite malodorous. Staff discussed this with him directly in Team meeting and he offers idiosyncratic explanation that is not understandable by team. He sums it up to say, "I guess I can't explain why I believe I shouldn't wash and not sound insane, I just do." Objective: Vital Signs Temp Pulse Resp BP Pulse Ox 36.8 C 75 18 128/74 H 97 03/21/18 06:00 03/21/18 06:00 03/21/18 06:00 03/21/18 06:00 03/21/18 06:00 MSE: Calm, interactive, friendly. Affect is euthymic, stable, approp. Mood is "good." TP is linear. TC reveals continued odd and idiosyncratic references , paranoia. - Time Spent With Patient Time Spent With Patient: 25" ICD10 Worksheet Patient Problems: Problems Problem Status Onset Schizophrenia Acute Cannabis abuse Acute Schizo-affective psychosis Acute
--- NOTE | 2018-03-21 12:37 | SOAPPROG ---
SOAP Progress Note Assessment/Plan: Assessment: Plantar foot dermatitis bilaterally. Likely due to prolonged wearing of shoes and no bathing. Not consistent with tenia or cellulitis. Advise Epsom salt soaks twice daily followed by application of Aquaphor ointment. Dystrophic toenails. Will order podiatry consult. 03/21/18 12:36 03/21/18 12:37 Subjective: Asked to see patient about cracked skin on feet. He wears issues for long periods and rarely bathes. He also complains of 1 toenail which is long and needs to be cut. He has mild discomfort but denies pain or itching. Objective: Vital Signs Temp Pulse Resp BP Pulse Ox 36.8 C 75 18 128/74 H 97 03/21/18 06:00 03/21/18 06:00 03/21/18 06:00 03/21/18 06:00 03/21/18 06:00 Physical Exam - Physical Exam General Appearance: WD/WN, alert, no apparent distress Skin: other (Plantar surface of both feet with thick yellowed sloughing skin with deep cracks in it. No erythema. Right foot 3rd toe nail dystrophic and long, growing over 4th toe. Great toenails bilaterally thickened and dystrophic.) Neuro/Psych: abnormal gait (Mildly antalgic relative to foot discomfort) ICD10 Worksheet Patient Problems: Problems Problem Status Onset Schizophrenia Acute Cannabis abuse Acute Schizo-affective psychosis Acute
[2018-03-21] MEDS: AQUAPHOR OINTMENT 3.5 OZ JAR TP SCH ×2 (14:23→19:27)
[2018-03-22] MEDS: AQUAPHOR OINTMENT 3.5 OZ JAR TP SCH ×2 (10:26→21:00)
--- NOTE | 2018-03-22 14:03 | SOAPPROG ---
SOAP Progress Note Assessment/Plan: Assessment: Onychomycosis, Onychogryphosis, tinea pedis Plan: Left 4th toe and right great toenails were debrided with a nail nipper. For the skin, he is advised to soak his feet daily in epsom salt and warm water and apply aquaphor to the cracks in the skin. There is most likely a component of tinea pedis present. Rx: Clotrimazole. He is advised to change his socks daily and wash his feet to prevent recurrence once healed. 03/22/18 13:59 Subjective: Podiatry was consulted on the patient for toenails and tinea pedis. The patient is a 57 year old male seen in [facility] facility. Patient states he doesn't change his socks often. The left 4th toenail and right great toenail are too thick for him to cut on his own and are growing into the skin of the adjacent toes. He has been soaking his feet since admission which has improved the appearance of his skin. Objective: Vital Signs Temp Pulse Resp BP Pulse Ox 36.3 C 84 16 138/77 H 94 03/22/18 06:00 03/22/18 06:00 03/22/18 06:00 03/22/18 06:00 03/22/18 06:00 Physical Exam - Physical Exam General Appearance: alert, no apparent distress Peripheral Pulses: 2+: dorsalis-pedis (R), dorsalis-pedis (L) Skin: other (peeling skin bilateral feet plantar aspect with erythema and dry skin. Toenails elongated and thickened with left 4th toenail growing into the skin of the 3rd toe. Right great toenail onychogryphosis. ) Extremities: normal range of motion, normal capillary refill ICD10 Worksheet Patient Problems: Problems Problem Status Onset Onychogryphosis Acute Schizophrenia Acute Tinea pedis Acute Cannabis abuse Acute Schizo-affective psychosis Acute - ICD10 Problem Qualifiers (1) Onychogryphosis (2) Tinea pedis Qualifiers: Laterality: bilateral Qualified Code(s): B35.3 - Tinea pedis
--- NOTE | 2018-03-22 17:38 | SOAPPROG ---
HAYDER Progress Note Assessment/Plan: Assessment: Plan: 03/08/18 16:33 Psychosis: SOme improvement. [facility]. P's informs us he is not on a certification at this time. Will allow him to sign in voluntarily and continue d/c planning. 03/09/18 16:16 Psychosis: May be approaching baseline. Will [facility], finalize d/c plan. 03/12/18 15:40 Psychosis: No change. CCM. Continue d/c planning. 03/14/18 15:19 Psychosis: Stable. CCM. 03/14/18 15:22 Psychosis: Stable. CCM. Continue d/c planning. Pt remains gravely disabled due to chronic mental illness and is not able to safely d/c to own recognizance. Would also not be able to tolerate alf environment. 03/15/18 17:41 Psychosis: Stable. Doing well. CCM. 03/16/18 16:18 Psychosis: Stable. CCM. 03/19/18 15:00 Psychosis: No change. CCM. Gets Prolixin dec tomorrow. Continue d/c planning. 03/21/18 12:23 Psychosis: Stable. CCM. Continue d/c planning. 03/21/18 12:26 Psychosis: Stable overall. CCM. 03/22/18 17:37 Psychosis: Stable. CCM. Subjective: Pt seen, discussed with staff. Upbeat and friendly. No c/o's. Compliant with meds and therapies. Dr. Wood examined feet and referred to podiatry. Objective: Vital Signs Temp Pulse Resp BP Pulse Ox 36.3 C 84 16 138/77 H 94 03/22/18 06:00 03/22/18 06:00 03/22/18 06:00 03/22/18 06:00 03/22/18 06:00 MSE: Poorly groomed, coop. Affect is bright, elevated. Mood is "great." TP is linear. TC reveals continued paranoid thoughts. No SI/HI/. - Time Spent With Patient Time Spent With Patient: 15" ICD10 Worksheet Patient Problems: Problems Problem Status Onset Onychogryphosis Acute Schizophrenia Acute Tinea pedis Acute Cannabis abuse Acute Schizo-affective psychosis Acute
[2018-03-22] MEDS: CLOTRIMAZOLE/BETAMET DIPROP 15 GM CRTUBE TP SCH (20:59)
[2018-03-23] MEDS: AQUAPHOR OINTMENT 3.5 OZ JAR TP SCH ×2 (10:52→22:42)
[2018-03-23] MEDS: CLOTRIMAZOLE/BETAMET DIPROP 15 GM CRTUBE TP SCH ×2 (10:52→22:42)
--- NOTE | 2018-03-23 16:41 | SOAPPROG ---
SOLEONARDO Progress Note Assessment/Plan: Assessment: Plan: 03/08/18 16:33 Psychosis: SOme improvement. [facility]. P's informs us he is not on a certification at this time. Will allow him to sign in voluntarily and continue d/c planning. 03/09/18 16:16 Psychosis: May be approaching baseline. Will [facility], finalize d/c plan. 03/12/18 15:40 Psychosis: No change. CCM. Continue d/c planning. 03/14/18 15:19 Psychosis: Stable. CCM. 03/14/18 15:22 Psychosis: Stable. CCM. Continue d/c planning. Pt remains gravely disabled due to chronic mental illness and is not able to safely d/c to own recognizance. Would also not be able to tolerate group home environment. 03/15/18 17:41 Psychosis: Stable. Doing well. CCM. 03/16/18 16:18 Psychosis: Stable. CCM. 03/19/18 15:00 Psychosis: No change. CCM. Gets Prolixin dec tomorrow. Continue d/c planning. 03/21/18 12:23 Psychosis: Stable. CCM. Continue d/c planning. 03/21/18 12:26 Psychosis: Stable overall. CCM. 03/22/18 17:37 Psychosis: Stable. CCM. 03/23/18 16:41 Psychosis: Stable. [facility]. Subjective: Pt seen, discussed with staff. Reports feeling "good." No c/o's. Remains compliant with treatments. No behavioral issues. Objective: Vital Signs Temp Pulse Resp BP Pulse Ox 36.8 C 80 16 106/71 95 03/23/18 06:00 03/23/18 06:00 03/23/18 06:00 03/23/18 06:00 03/23/18 06:00 - Time Spent With Patient Time Spent With Patient: 15" ICD10 Worksheet Patient Problems: Problems Problem Status Onset Onychogryphosis Acute Schizophrenia Acute Tinea pedis Acute Cannabis abuse Acute Schizo-affective psychosis Acute
[2018-03-24] MEDS ORDERED: LORazepam 1 MG TAB PO PRN (13:30)
[2018-03-24] MEDS: CLOTRIMAZOLE/BETAMET DIPROP 15 GM CRTUBE TP SCH ×2 (13:34→19:34)
[2018-03-24] MEDS: AQUAPHOR OINTMENT 3.5 OZ JAR TP SCH ×2 (13:34→19:31)
--- NOTE | 2018-03-24 14:42 | ASMTCMCOM ---
CM Note CM Note Notes: Pt. reports feeling "good, good". Pt. stated he slept "good". Pt. reports no issues with his current medications. Pt. stated "sorta don't want to take a shower". Pt. shared about his distaste for showering, stating he would take up to three showers a day as a kid. Pt. stated he does not shower or brush his teeth. Pt. stated he does wash his hands after using the restroom. Pt. stated he was "feeling quite suicidal" yesterday. Pt. stated he is worried about housing and cried in his dreams. Pt. stated he promised his mom he would not commit suicide. Pt. stated he'd "rather commit suicide than take a shower". Pt. reports "comfortable wearing dirty clothes". Pt. denied SI, HI, AVH and paranoia. Pt. presents as alert, friendly, polite, good eye contact, giggling often, and cooperative. Staff report pt. sleeping 11.5 hours and being medication compliant. Date Signed: 03/24/2018 02:41 PM Electronically Signed By:Lakeisha Hollis
--- NOTE | 2018-03-24 17:04 | SOAPPROG ---
SOAP Progress Note Assessment/Plan: Assessment: Per Dr. Zuniga's most recent note: 03/19/18 15:00 Psychosis: No change. CCM. Gets Prolixin dec tomorrow. Continue d/c planning. 03/21/18 12:23 Psychosis: Stable. CCM. Continue d/c planning. 03/21/18 12:26 Psychosis: Stable overall. CCM. 03/22/18 17:37 Psychosis: Stable. CCM. 03/23/18 16:41 Psychosis: Stable. CCM. Subjective: Pt seen, discussed with staff. Reports feeling "good." No c/o's. Remains compliant with treatments. No behavioral issues. PLAN: 03/24/18 17:00 1. Patient received Prolixin injection on 03/20/18. Denies any SE's. 2. Still refuses to shower or wash clothes. 3. Patient does not attend groups or participate in treatment. 4. Slept 11.5 hrs and stayed in room most of the day. 5. CCM Subjective: Patient isolated in his room most of the day. He only comes out of his room to eat meals. He claims he doesn't need to shower, wash clothes or brush his teeth. He says "we all go through periods in our lives when we don't want to do " those things. His goals in hospital are "walking, exercising and sleeping." Objective: Vital Signs Temp Pulse Resp BP Pulse Ox 36.6 C 69 14 118/63 97 03/24/18 06:00 03/24/18 06:00 03/24/18 06:00 03/24/18 06:00 03/24/18 06:00 MSE: Affect: Euthymic Mood: "OK" TP: Disorganized, loose TC: Denies any SI/ HI Perception: Denies any AH/VH Insight/Judgment: Poor - Time Spent With Patient Time Spent With Patient: 15" - Pending Discharge Pending Discharge Within 24 Hours: No Pending Discharge Within 48 Hours: No ICD10 Worksheet Patient Problems: Problems Problem Status Onset Onychogryphosis Acute Schizophrenia Acute Tinea pedis Acute Cannabis abuse Acute Schizo-affective psychosis Acute
[2018-03-25] MEDS: CLOTRIMAZOLE/BETAMET DIPROP 15 GM CRTUBE TP SCH ×2 (15:40→19:56)
[2018-03-25] MEDS: AQUAPHOR OINTMENT 3.5 OZ JAR TP SCH ×2 (15:41→19:56)
--- NOTE | 2018-03-25 17:48 | SOAPPROG ---
SOAP Progress Note Assessment/Plan: Assessment: Per Dr. Zuniga's most recent note: 03/19/18 15:00 Psychosis: No change. CCM. Gets Prolixin dec tomorrow. Continue d/c planning. 03/21/18 12:23 Psychosis: Stable. CCM. Continue d/c planning. 03/21/18 12:26 Psychosis: Stable overall. CCM. 03/22/18 17:37 Psychosis: Stable. CCM. 03/23/18 16:41 Psychosis: Stable. [facility]. Subjective: Pt seen, discussed with staff. Reports feeling "good." No c/o's. Remains compliant with treatments. No behavioral issues. PLAN: 03/24/18 17:00 1. Patient received Prolixin injection on 03/20/18. Denies any SE's. 2. Still refuses to shower or wash clothes. 3. Patient does not attend groups or participate in treatment. 4. Slept 11.5 hrs and stayed in room most of the day. 5. [facility] 03/25/18 17:46 1. Patient smiling, talking to peers. Less isolative today. 2. Still not participating in treatment, does not attend groups. 3. Waiting for placement. 4. No changes Subjective: Patient is present in milieu more today. When MD talks to him, he is sitting in chair having conversation with peer. They are both laughing and smiling. Patient slept 10.5 hrs last night, but also naps for long periods during the day. Staff have encouraged him to attend groups, but patient refuses. Objective: Vital Signs Temp Pulse Resp BP Pulse Ox 36.9 C 78 14 98/65 L 97 03/25/18 06:00 03/25/18 06:00 03/24/18 06:00 03/25/18 06:00 03/24/18 06:00 MSE: Affect: Bright, cheerful Mood: "Good" TP: Tangential TC: Denies any SI/ HI Insight/Judgment: Poor - Time Spent With Patient Time Spent With Patient: 15" - Pending Discharge Pending Discharge Within 24 Hours: No Pending Discharge Within 48 Hours: No ICD10 Worksheet Patient Problems: Problems Problem Status Onset Onychogryphosis Acute Schizophrenia Acute Tinea pedis Acute Cannabis abuse Acute Schizo-affective psychosis Acute
[2018-03-26] MEDS: AQUAPHOR OINTMENT 3.5 OZ JAR TP SCH ×2 (08:56→19:38)
[2018-03-26] MEDS: CLOTRIMAZOLE/BETAMET DIPROP 15 GM CRTUBE TP SCH ×2 (08:56→19:39)
--- NOTE | 2018-03-26 13:56 | ASMTBHDC ---
Notes Note: Notes: CC spoke with pt's Renetta ARAMBULA ([phone]). MOC stated "don't think that will work" when asked if pt would be able to stay with them for a little while. Date Signed: 03/26/2018 01:55 PM Electronically Signed By:Lakeisha Hollis
--- NOTE | 2018-03-26 14:03 | ASMTBHDC ---
Notes Note: Notes: Pt is an at-risk adult for staying at the homeless nursing home Date Signed: 03/26/2018 02:01 PM Electronically Signed By:Lakeisha Hollis
--- NOTE | 2018-03-26 15:37 | SOAPPROG ---
SOAP Progress Note Assessment/Plan: Assessment: Plan: 03/08/18 16:33 Psychosis: SOme improvement. [facility]. [facility]'s informs us he is not on a certification at this time. Will allow him to sign in voluntarily and continue d/c planning. 03/09/18 16:16 Psychosis: May be approaching baseline. Will [facility], finalize d/c plan. 03/12/18 15:40 Psychosis: No change. CCM. Continue d/c planning. 03/14/18 15:19 Psychosis: Stable. CCM. 03/14/18 15:22 Psychosis: Stable. CCM. Continue d/c planning. Pt remains gravely disabled due to chronic mental illness and is not able to safely d/c to own recognizance. Would also not be able to tolerate halfway environment. 03/15/18 17:41 Psychosis: Stable. Doing well. CCM. 03/16/18 16:18 Psychosis: Stable. CCM. 03/19/18 15:00 Psychosis: No change. CCM. Gets Prolixin dec tomorrow. Continue d/c planning. 03/21/18 12:23 Psychosis: Stable. CCM. Continue d/c planning. 03/21/18 12:26 Psychosis: Stable overall. CCM. 03/22/18 17:37 Psychosis: Stable. CCM. 03/23/18 16:41 Psychosis: Stable. CCM. 03/26/18 15:37 Psychosis: Stable. [facility]: d/c planning. Subjective: Pt seen, discussed with staff, chart reviewed. He had an uneventful weekend. D /c planning continues though there remain few options for safe housing. Objective: Vital Signs Temp Pulse Resp BP Pulse Ox 36.8 C 85 15 85/62 L 95 03/26/18 06:00 03/26/18 06:00 03/26/18 06:00 03/26/18 06:00 03/26/18 06:00 MSE: Calm, coop. Affect is euthymic, smiling. Mood is "good." TP is linear. TC reveals continued bizarre and parnanoid thoughts. Denies SI/HI/. ICD10 Worksheet Patient Problems: Problems Problem Status Onset Onychogryphosis Acute Schizophrenia Acute Tinea pedis Acute Cannabis abuse Acute Schizo-affective psychosis Acute
[2018-03-27] MEDS: AQUAPHOR OINTMENT 3.5 OZ JAR TP SCH ×2 (11:56→21:20)
[2018-03-27] MEDS: CLOTRIMAZOLE/BETAMET DIPROP 15 GM CRTUBE TP SCH ×2 (11:56→21:21)
--- NOTE | 2018-03-27 12:06 | SOAPPROG ---
SOAP Progress Note Assessment/Plan: Assessment: Plan: 03/08/18 16:33 Psychosis: SOme improvement. [facility]. P's informs us he is not on a certification at this time. Will allow him to sign in voluntarily and continue d/c planning. 03/09/18 16:16 Psychosis: May be approaching baseline. Will [facility], finalize d/c plan. 03/12/18 15:40 Psychosis: No change. CCM. Continue d/c planning. 03/14/18 15:19 Psychosis: Stable. CCM. 03/14/18 15:22 Psychosis: Stable. CCM. Continue d/c planning. Pt remains gravely disabled due to chronic mental illness and is not able to safely d/c to own recognizance. Would also not be able to tolerate [facility] [place]. 03/15/18 17:41 Psychosis: Stable. Doing well. CCM. 03/16/18 16:18 Psychosis: Stable. CCM. 03/19/18 15:00 Psychosis: No change. CCM. Gets Prolixin dec tomorrow. Continue d/c planning. 03/21/18 12:23 Psychosis: Stable. CCM. Continue d/c planning. 03/21/18 12:26 Psychosis: Stable overall. CCM. 03/22/18 17:37 Psychosis: Stable. CCM. 03/23/18 16:41 Psychosis: Stable. CCM. 03/26/18 15:37 Psychosis: Stable. [facility]: d/c planning. 03/27/18 12:05 Psychosis: Stable. [facility]. Subjective: Pt seen, discussed with staff. Pleasant and friendly this morning. No c/o's. Objective: Vital Signs Temp Pulse Resp BP Pulse Ox 36.3 C 80 16 119/71 95 03/27/18 06:00 03/27/18 06:00 03/27/18 06:00 03/27/18 06:00 03/27/18 06:00 MSE: Poorly groomed, malodorous. Affect is smiling, bright. Mood is "good." TP is generally linear. TC reveals continued familiar delusions. - Time Spent With Patient Time Spent With Patient: 15" ICD10 Worksheet Patient Problems: Problems Problem Status Onset Onychogryphosis Acute Schizophrenia Acute Tinea pedis Acute Cannabis abuse Acute Schizo-affective psychosis Acute
--- NOTE | 2018-03-27 13:04 | ASMTCMCOM ---
CM Note CM Note Notes: The patient was cheerful and friendly while interacting with this tag writer. He explained that his discharge plan is to obtain a respite bed prior to securing housing in the community. He reported having money in savings. The patient reported that his rn case manager hospice at [facility] is out of the office through 04/03/18. According to [facility] staff, the patient is refused foot care during the evening shift (03/26/18). Date Signed: 03/27/2018 01:03 PM Electronically Signed By:Anay Ambrose
[2018-03-28] MEDS: CLOTRIMAZOLE/BETAMET DIPROP 15 GM CRTUBE TP SCH ×2 (08:55→20:07)
[2018-03-28] MEDS: AQUAPHOR OINTMENT 3.5 OZ JAR TP SCH ×2 (08:55→20:07)
--- NOTE | 2018-03-28 14:53 | ASMTBHDC ---
Notes Note: Notes: This medical technical writer spoke with Danielle from [facility]. Danielle was unable to confirm the current status of the patient's housing voucher. However, she did indicate that when a tenant is "noncompliance with the lease" [facility] has the authority to "propose termination of the voucher." Although [facility] has not pursued termination, Danielle reported that she believes they will. The director of casework department assigned to this patient is out of the office through 04/03/18. Should [facility] pursue termination, Danielle explained that the patient has the right to "request a hearing." She reported that the earliest the patient would learn whether his voucher is being terminated would be 04/06/18. If the patient's voucher is reissued he will have 60 days to find a residence. The patient has had a voucher since 1990. He has been cooperative and compliant for 28 years. This medical technical writer spoke with Kayla from [facility], who reported that they would not be able to rent to the patient again for six months. At that time, the patient will require a landlord reference attesting to his compliance. He reported that he wrote Smith Chago, an email documenting his position on the patient as a tenant including that the patient was taken advantage of after decompensating following a nonadherence to medication. He described the patient as having behaved appropriately. Date Signed: 03/28/2018 02:52 PM Electronically Signed By:Anay Ambrose
--- NOTE | 2018-03-28 17:41 | SOAPPROG ---
SOAP Progress Note Assessment/Plan: Assessment: Per Dr. Zuniga's most recent note: 03/26/18 15:37 Psychosis: Stable. [facility], inc: d/c planning. 03/27/18 12:05 Psychosis: Stable. [facility]CM. Subjective: Pt seen, discussed with staff. Pleasant and friendly this morning. No c/o's. PLAN: 03/28/18 17:39 1. No change. Patient remains same. 2. CCM - stable 3. Awaiting placement Subjective: Patient pacing in halls, waves at MD. He is bright, eager to talk and congenial. He denies any physical complaints. He continues to refuse all hygiene , won't shower. He has also started to refuse foot care. He denies any SI/HI. Objective: Vital Signs Temp Pulse Resp BP Pulse Ox 36.3 C 85 16 125/57 H 94 03/27/18 06:00 03/28/18 06:00 03/28/18 06:00 03/28/18 06:00 03/28/18 06:00 MSE: Affect: Bright, cheerful Mood: "OK" TP: Tangential, loose TC: Denies any SI/HI, delusions present Insight/Judgment: Poor - Time Spent With Patient Time Spent With Patient: 15" - Pending Discharge Pending Discharge Within 24 Hours: No Pending Discharge Within 48 Hours: No ICD10 Worksheet Patient Problems: Problems Problem Status Onset Onychogryphosis Acute Schizophrenia Acute Tinea pedis Acute Cannabis abuse Acute Schizo-affective psychosis Acute
--- NOTE | 2018-03-29 11:40 | ASMTCMCOM ---
CM Note CM Note Notes: The patient participated in clinical treatment team rounds. He was engaged and appropriate. The team discussed hygiene; the patient continues to decline to perform activities of daily living. He was receptive to changing/washing his clothing. He refused to bathe with a warm towel or wipe. The team discussed discharge alternatives; the patient is not interested in middle or intermediate school principal care. He explained that he would like to utilize his voucher and find housing. This tag writer discussed homeless intermediate/services interim. The patient refused. He stated "I can't so I won't. I will jump off a evangelina. I'm not one of those people. I don't smoke pot." Date Signed: 03/29/2018 11:39 AM Electronically Signed By:Anay Ambrose
[2018-03-29] MEDS: CLOTRIMAZOLE/BETAMET DIPROP 15 GM CRTUBE TP SCH ×2 (11:53→19:34)
[2018-03-29] MEDS: AQUAPHOR OINTMENT 3.5 OZ JAR TP SCH ×2 (11:54→19:34)
--- NOTE | 2018-03-29 16:15 | SOAPPROG ---
SOAP Progress Note Assessment/Plan: Assessment: Per Dr. Zuniga's most recent note: 03/26/18 15:37 Psychosis: Stable. [facility]: d/c planning. 03/27/18 12:05 Psychosis: Stable. [facility] [place]. Subjective: Pt seen, discussed with staff. Pleasant and friendly this morning. No c/o's. PLAN: 03/28/18 17:39 1. No change. Patient remains same. 2. CCM - stable 3. Awaiting placement PLAN: 03/29/18 16:11 1. Patient attended treatment team meeting this AM. Since patient has consistently refused to take a shower or bath, staff tried to convince him to use wet wipes to clean himself. However, patient refused. He did agree to wash and change his clothes. However, when MD checked back later this afternoon, patient still had on same malodorous clothes. 2. CC has spoken to [facility] binder caser. Patient is no longer a tenant at [facility]. [facility] is deciding whether or not to terminate patient's housing voucher. If that happens, then patient will be homeless. He refuses to consider staying at a custodial. [facility] may not decide until the end of next week. In that case, patient will need a backup housing plan. CC tried to help patient think of options, but patient refused to consider anything other than a new apartment. 3. [facility] - stable Subjective: Patient walking around in very malodorous clothes. He agreed this AM to wash and change his clothes, but so far hasn't done it. Patient also refused to consider using wet wipes to clean his body since he refuses to take a shower or bath. Patient is pleasant and talkative as always, and he denies any psychotic sxs. He does not endorse AH/VH, or SI/HI. He told CC that he refuses to consider staying at homeless custodial. MD and CC have tried to impress on patient that this may be his only option if [facility] terminates his voucher. Even if [facility] decides to renew his voucher, he will still have to look for a new apartment , since he can't go back to [facility]. In that case, patient will still need temporary custodial. Patient has no insight or ability to problem solve his current housing dilemma despite help from CC and staff. Objective: Vital Signs Temp Pulse Resp BP Pulse Ox 36.3 C 76 14 105/75 94 03/27/18 06:00 03/29/18 06:00 03/29/18 06:00 03/29/18 06:00 03/29/18 06:00 MSE: Affect: Pleasant, defiant about bathing/washing clothes Mood: "OK" TP: Tangential TC: Denies any SI/HI Insight/Judgment: Poor - Time Spent With Patient Time Spent With Patient: 15" - Pending Discharge Pending Discharge Within 24 Hours: No Pending Discharge Within 48 Hours: No ICD10 Worksheet Patient Problems: Problems Problem Status Onset Onychogryphosis Acute Schizophrenia Acute Tinea pedis Acute Cannabis abuse Acute Schizo-affective psychosis Acute
[2018-03-30] MEDS: AQUAPHOR OINTMENT 3.5 OZ JAR TP SCH ×2 (09:25→19:24)
[2018-03-30] MEDS: CLOTRIMAZOLE/BETAMET DIPROP 15 GM CRTUBE TP SCH ×2 (09:25→19:23)
--- NOTE | 2018-03-30 11:04 | ASMTBHDC ---
Notes Note: Notes: [facility] [address] [place] [address] Room reserved for patient from April 02, 2018 - April 05, 2018 Confirmation number: [id number] Total cost - $297.00 Date Signed: 03/30/2018 11:03 AM Electronically Signed By:Lakeisha Hollis
--- NOTE | 2018-03-30 11:45 | ASMTBHDC ---
Notes Note: Notes: [facility] [employer] [facility] Patient's meals will start being delivered on Monday04/03/18 and deliveries are between 11am - 12:30pm. Pt. will have meals for 04/03/18, 04/04/18, and 04/05/18. Pt's meals will be delivered to the [facility] in [place]. Date Signed: 03/30/2018 11:44 AM Electronically Signed By:Lakeisha Hollis
--- NOTE | 2018-03-30 12:24 | ASMTBHDC ---
Notes Note: Notes: Pt. reports feeling "good, good, good, good, good". Pt. stated he slept "pretty good". Pt. reports no issues with his current medications. Pt. stated he is not attending groups and is not interested in showering or changing his clothes. Pt. stated he is keeping busy by "walking and sleep". Pt. denied SI, HI, AVH and paranoia. Pt. reports having $2,000 in his bank account. CC discussed pt. putting cream on his feet, to which pt. refused. Pt. presents as alert, calm, smiling, friendly, good eye contact, malodorous and cooperative. Staff report pt. sleeping 13 hours and being medication compliant. Pt. is currently scheduled to discharge on Monday04/02/18 [facility] to stay at until his [facility] appointment on 04/05/18. Pt. will have meals on wheels deliver food to the hotel, and a home health care referral has been sent out to assist pt. with his foot care. Date Signed: 03/30/2018 12:23 PM Electronically Signed By:Lakeisha Hollis
--- NOTE | 2018-03-30 14:06 | ASMTBHDC ---
Notes Note: Notes: CC spoke with pt's MOC, Renetta, ([phone]) about pt's discharge plan. MOC agreed with the plan and thank the hospital staff for caring for her son. Date Signed: 03/30/2018 02:05 PM Electronically Signed By:Lakeisha Hollis
--- NOTE | 2018-03-30 15:38 | SOAPPROG ---
SOAP Progress Note Assessment/Plan: Assessment: Per Dr. Zuniga's most recent note: 03/26/18 15:37 Psychosis: Stable. [facility], inc: d/c planning. 03/27/18 12:05 Psychosis: Stable. [facility]. Subjective: Pt seen, discussed with staff. Pleasant and friendly this morning. No c/o's. PLAN: 03/28/18 17:39 1. No change. Patient remains same. 2. CCM - stable 3. Awaiting placement PLAN: 03/29/18 16:11 1. Patient attended treatment team meeting this AM. Since patient has consistently refused to take a shower or bath, staff tried to convince him to use wet wipes to clean himself. However, patient refused. He did agree to wash and change his clothes. However, when MD checked back later this afternoon, patient still had on same malodorous clothes. 2. CC has spoken to [facility] keycase assembler. Patient is no longer a tenant at [facility]. [facility] is deciding whether or not to terminate patient's housing voucher. If that happens, then patient will be homeless. He refuses to consider staying at a chcf. [facility] may not decide until the end of next week. In that case, patient will need a backup housing plan. CC tried to help patient think of options, but patient refused to consider anything other than a new apartment. 3. [facility] - stable PLAN: 03/30/18 15:33 1. Patient wearing same clothes as yesterday. Still hasn't washed clothes or bathed. 2. Patient excited about d/c on Monday. Very happy with option to stay in hotel with home health visits. 3. Patient has f/u with Dr. Roy on 04/05. He is aware that his next Prolixin IM injection is due on 04/10/18. 4. [facility] Subjective: Patient greets MD with smile and says, "nice to see you again." He reports feeling pleased about placement option to stay at [facility] instead of homeless chcf. Patient understands this is a temporary housing solution as he will likely lose his [address] voucher. If that's the case, there is no exterminator helper plan in place for patient yet. CC on unit has been in touch with patient's BHP case packer and his P keycase assembler to discuss longer term options. Right now, [facility] and [facility] say there aren't any, they are waiting for the final decision about whether or not [facility] will terminate the voucher. Patient remains stable, he denies any active psychotic sxs, there are no signs of RIS, paranoia, bizarre thoughts. He denies any SI/HI. Objective: Vital Signs Temp Pulse Resp BP Pulse Ox 36.3 C 75 16 110/73 94 03/27/18 06:00 03/30/18 06:00 03/30/18 06:00 03/30/18 06:00 03/30/18 06:00 MSE: Affect: Congenial, bright, smiling Mood: "Good" TP: Linear TC: Denies any SI/HI Insight/Judgment: Poor a/e/b his unwillingness to consider longer term solutions to his housing problem - Time Spent With Patient Time Spent With Patient: 20" - Pending Discharge Pending Discharge Within 24 Hours: No Pending Discharge Within 48 Hours: No ICD10 Worksheet Patient Problems: Problems Problem Status Onset Onychogryphosis Acute Schizophrenia Acute Tinea pedis Acute Cannabis abuse Acute Schizo-affective psychosis Acute
[2018-03-31] MEDS: AQUAPHOR OINTMENT 3.5 OZ JAR TP SCH ×2 (08:31→20:30)
[2018-03-31] MEDS: CLOTRIMAZOLE/BETAMET DIPROP 15 GM CRTUBE TP SCH ×2 (08:32→20:30)
--- NOTE | 2018-03-31 15:29 | ASMTBHDC ---
Notes Note: Notes: Pt. reports feeling "good, thanks". Pt. stated he slept "good, good". Pt. reports eating well and keeping busy by walking and sleeping. Pt. stated his next long acting injection on 04/10/18. Pt. stated he plans to potato picker his payee card at [facility] on 04/05/18. Pt. stated [facility] has $2,000 for a deposit on his next apartment. Pt. stated he has knowledge about the local bus system and is able to get himself to his follow up appointments. CC offered to print [employer]D bus schedules but pt. denied. Pt. denied SI, HI, AVH and paranoia. Pt. presents as alert, calm, smiling, friendly, malodorous, polite, good eye contact and cooperative. Staff report pt. sleeping 13 hours and refusing his foot care. Date Signed: 03/31/2018 03:28 PM Electronically Signed By:Lakeisah Hollis
--- NOTE | 2018-03-31 19:33 | SOAPPROG ---
SOAP Progress Note Assessment/Plan: Assessment: Per Dr. Zuniga's most recent note: 03/26/18 15:37 Psychosis: Stable. [facility], inc: d/c planning. 03/27/18 12:05 Psychosis: Stable. [facility]. Subjective: Pt seen, discussed with staff. Pleasant and friendly this morning. No c/o's. PLAN: 03/28/18 17:39 1. No change. Patient remains same. 2. CCM - stable 3. Awaiting placement PLAN: 03/29/18 16:11 1. Patient attended treatment team meeting this AM. Since patient has consistently refused to take a shower or bath, staff tried to convince him to use wet wipes to clean himself. However, patient refused. He did agree to wash and change his clothes. However, when MD checked back later this afternoon, patient still had on same malodorous clothes. 2. CC has spoken to [facility] rehabilitation case coordinator. Patient is no longer a tenant at [facility] [employer]. [facility] is deciding whether or not to terminate patient's housing voucher. If that happens, then patient will be homeless. He refuses to consider staying at a detention. [facility] may not decide until the end of next week. In that case, patient will need a backup housing plan. CC tried to help patient think of options, but patient refused to consider anything other than a new apartment. 3. [facility] - stable PLAN: 03/30/18 15:33 1. Patient wearing same clothes as yesterday. Still hasn't washed clothes or bathed. 2. Patient excited about d/c on Monday. Very happy with option to stay in hotel with home health visits. 3. Patient has f/u with Dr. Roy on 04/05. He is aware that his next Prolixin IM injection is due on 04/10/18. 4. [facility] PLAN: 03/31/18 19:29 1. No change since last week. Patient remains stable. 2. POC came for visit for first time during this admission. 3. P would like POC's assistance getting patient to/from his appointments. They will reach out to family and discuss options for managing patient's treatment once he discharges from hospital. P would also like to keep connected with patient by having his rehabilitation case coordinator call his cell and send text messages reminding him about appointments and getting updates from patient. thinks this would be a good idea. 4. Patient due for next CARIAS Prolixin on 04/10/18. 5. F/U with Dr. Roy changed to 04/06/18. 6. Likely to d[facility] on [facility] to [facility] with support from home health and [employer]. 7. [facility] Subjective: Patient's parents visit him on unit for first time during his admission. He was excited to see them. Patient remains stable, denies any psychotic sxs. He also denies feeling sad, depressed or suicidal. Objective: Vital Signs Temp Pulse Resp BP Pulse Ox 36.3 C 86 16 104/73 94 03/27/18 06:00 03/31/18 06:00 03/31/18 06:00 03/31/18 06:00 03/31/18 06:00 MSE: Affect: Euthymic Mood: "Good" TP: Talkative, loose TC: Denies any SI/HI Perception: Denies any AH/VH Insight/Judgment: Poor - Time Spent With Patient Time Spent With Patient: 15" - Pending Discharge Pending Discharge Within 24 Hours: No Pending Discharge Within 48 Hours: Yes Pending Discharge Date: 04/02/18 (Likely to d/c on Monday) Pending Discharge Time: 11:00 ICD10 Worksheet Patient Problems: Problems Problem Status Onset Onychogryphosis Acute Schizophrenia Acute Tinea pedis Acute Cannabis abuse Acute Schizo-affective psychosis Acute
[2018-04-01] MEDS: CLOTRIMAZOLE/BETAMET DIPROP 15 GM CRTUBE TP SCH ×2 (09:08→21:02)
[2018-04-01] MEDS: AQUAPHOR OINTMENT 3.5 OZ JAR TP SCH ×2 (09:08→21:02)
--- NOTE | 2018-04-01 15:43 | ASMTBHDC ---
Notes Note: Notes: Pt. reports feeling "good". Pt. stated he slept "good, good, good". Pt. reports eating well and not attending groups. Pt. and CC discussed pt's discharge plan and the rules about not smoking or having visitors, besides parents, at the hotel. Pt. stated he is willing to purchase bus tickets with his money card, CC informed pt. the hospital will give him a number of bus passes to assist him. Pt. declined CC's offer to write out a calendar with pt's appointments. Pt. declined CC's offer to print out RTC bus schedules to help pt. Pt. denied SI, HI, AVH and paranoia. Pt. stated his parents will be visiting today and will give him avina to purchase cigarettes upon discharge. Pt. presents as alert, calm, friendly, malodorous, polite, good eye contact, and cooperative. Staff report pt. sleeping 11.5 hours and refusing foot care. Weekday CC will need to update [facility] [facility] and [facility] on Monday about pt needing services through 04/06/18. Date Signed: 04/01/2018 03:42 PM Electronically Signed By:Lakeisha Hollis
--- NOTE | 2018-04-01 17:37 | SOAPPROG ---
SOAP Progress Note Assessment/Plan: Assessment: Per Dr. Zuniga's most recent note: 03/26/18 15:37 Psychosis: Stable. [facility], inc: d/c planning. 03/27/18 12:05 Psychosis: Stable. [facility]. Subjective: Pt seen, discussed with staff. Pleasant and friendly this morning. No c/o's. PLAN: 03/28/18 17:39 1. No change. Patient remains same. 2. CCM - stable 3. Awaiting placement PLAN: 03/29/18 16:11 1. Patient attended treatment team meeting this AM. Since patient has consistently refused to take a shower or bath, staff tried to convince him to use wet wipes to clean himself. However, patient refused. He did agree to wash and change his clothes. However, when MD checked back later this afternoon, patient still had on same malodorous clothes. 2. CC has spoken to [facility] rehabilitation caseworker. Patient is no longer a tenant at [facility] [employer]. [facility] is deciding whether or not to terminate patient's housing voucher. If that happens, then patient will be homeless. He refuses to consider staying at a detention. [facility] may not decide until the end of next week. In that case, patient will need a backup housing plan. CC tried to help patient think of options, but patient refused to consider anything other than a new apartment. 3. [facility] - stable PLAN: 03/30/18 15:33 1. Patient wearing same clothes as yesterday. Still hasn't washed clothes or bathed. 2. Patient excited about d/c on Monday. Very happy with option to stay in hotel with home health visits. 3. Patient has f/u with Dr. Roy on 04/05. He is aware that his next Prolixin IM injection is due on 04/10/18. 4. [facility] PLAN: 03/31/18 19:29 1. No change since last week. Patient remains stable. 2. POC came for visit for first time during this admission. 3. P would like POC's assistance getting patient to/from his appointments. They will reach out to family and discuss options for managing patient's treatment once he discharges from hospital. P would also like to keep connected with patient by having his rehabilitation caseworker call his cell and send text messages reminding him about appointments and getting updates from patient. MD thinks this would be a good idea. 4. Patient due for next CARIAS Prolixin on 04/10/18. 5. F/U with Dr. Roy changed to 04/06/18. 6. Likely to d/c on Monday to [facility] with support from home health and [employer]. 7. [facility] PLAN: 04/01/18 17:34 1. Patient visited with POC again today. He says their visit went well. 2. CC reviewed rules for [facility], such as no smoking in his room. Patient agreed. 3. Follow up appointments have been made with [facility]. Patient agrees. 4. Plan to d/c tomorrow. Subjective: No change in patient's presentation. He is wearing the same collazo T-shirt MD has seen him in every day. Patient refuses to wash any of his clothes or take a shower. RN encouraged patient to use topical cream on his feet this AM and patient refused. He is happy about discharging tomorrow. Objective: Vital Signs Temp Pulse Resp BP Pulse Ox 36.7 C 84 16 97/69 L 94 04/01/18 06:00 04/01/18 06:00 04/01/18 06:00 04/01/18 06:00 04/01/18 06:00 MSE: Affect: Elevated, smiling Mood: "Good" TP: Tangential TC: Denies any SI/ HI Insight/Judgment: Poor - Time Spent With Patient Time Spent With Patient: 15" - Pending Discharge Pending Discharge Within 24 Hours: Yes Pending Discharge Date: 04/02/18 (Plan to d/c tomorrow) Pending Discharge Time: 11:00 ICD10 Worksheet Patient Problems: Problems Problem Status Onset Onychogryphosis Acute Schizophrenia Acute Tinea pedis Acute Cannabis abuse Acute Schizo-affective psychosis Acute
[2018-04-02 06:54] VITALS: BP 98/71
[2018-04-02] MEDS: AQUAPHOR OINTMENT 3.5 OZ JAR TP SCH (07:46)
[2018-04-02] MEDS: CLOTRIMAZOLE/BETAMET DIPROP 15 GM CRTUBE TP SCH (07:46)
--- NOTE | 2018-04-02 12:09 | ASMTBHDC ---
Notes Note: Notes: CC contacted [employer] [facility] and [facility] to update on dates pt. will need assistance. CC spoke with pt's MOC. MOC stated pt. has shared some of his anxieties with her about staying at the hotel. MOC agreed with pt's discharge plan. MOC stated she is appreciative of the hospital for caring for her son. Date Signed: 04/02/2018 12:08 PM Electronically Signed By:Lakeisha Hollis
--- NOTE | 2018-04-02 12:13 | ASMTBHDC ---
Notes Note: Notes: CC briefly checked in with pt. Pt. reports no concerns or anxieties about his discharge plan. Pt. stated he is very familiar with the bus system and stated he does not need CC to print out a bus schedule. Pt. agreed with hotel rules and follow up care plan. CC provided pt with a calendar with his follow up appointments and a handout with contact information, appointments, and addresses. Pt. reports not wanting additional clothing. Pt. denied SI, HI, AVH and paranoia. Date Signed: 04/02/2018 12:13 PM Electronically Signed By:Lakeisha Hollis
== END 2018-04-02 13:20 | disposition home health service (06) | DRG 885 ==
LOC: EDUNIT# → BBEH 03-06 00:45
PROVIDERS: ADMIT Psychiatry & Neurology Behavioral Neurology & Neuropsychiatry; ATTEND Psychiatry & Neurology Psychiatry
DX: F20.89 Other schizophrenia (principal); E87.1 Hypo-osmolality and hyponatremia; F17.210 Nicotine dependence, cigarettes, uncomplicated; L60.2 Onychogryphosis; B35.1 Tinea unguium; B35.3 Tinea pedis; Z59.0 Homelessness
CPT/HCPCS: 80305; G0480; J2680

== ENCOUNTER 2018-04-06 23:57 | Emergency (ER) | payer OTHER ==
--- NOTE | 2018-04-07 00:30 | EDPHY ---
H & P Stated Complaint: M1 Source: Patient, Old records Exam Limitations: No limitations - Personal History Current Tetanus Diphtheria and Acellular Pertussis (TDAP): Yes Tetanus Vaccine Date: 2010 - Medical/Surgical History Hx Asthma: No Hx Chronic Respiratory Disease: No Hx Diabetes: No Hx Cardiac Disease: No Hx Renal Disease: No Hx Cirrhosis: No Hx Alcoholism: No Hx HIV/AIDS: No Hx Splenectomy or Spleen Trauma: No Other PMH: Schizophrenia. hernia repair - Social History Smoking Status: Current every day smoker Time Seen by Provider: 04/07/18 00:16 HPI/ROS: HPI The patient presents with psychosis and grave disability, placed on an M1 hold at the crisis Center, brought to the emergency department. The patient was recently released from [address] [place] [address] after high several week inpatient stay for psychosis. He was doing well, however was found at the crisis Center to have a labile mood, loose associations, poor impulse control, spending 100s of dollars. He was evaluated there by mental health and placed on a hold. The plan will be for him to go to [address] [place] [address] in the morning. Patient denies any suicidal or homicidal ideation. REVIEW OF SYSTEMS 10 systems were reviewed and negative with the exception of the elements mentioned in the history of present illness. PMHx: Schizophrenia on Prolixin Soc Hx: Homeless, has been staying at a hotel recently. PHYSICAL General Appearance: Alert, disheveled Eyes: Pupils equal and round no pallor or injection ENT, Mouth: Mucous membranes moist Respiratory: There are no retractions, lungs are clear to auscultation Cardiovascular: Regular rate and rhythm Gastrointestinal: Abdomen is soft and non-tender, no masses, bowel sounds normal Neurological: A&O, moves all extremities Skin: Warm and dry, no rashes Musculoskeletal: Neck is supple non tender Extremities: symmetrical, full range of motion Psychiatric: Patient is oriented X 3, there is no agitation (RiguzziYvonne) Constitutional: Initial Vital Signs Temperature (C) 36.8 C 04/07/18 00:07 Heart Rate 74 04/07/18 00:07 Respiratory Rate 16 04/07/18 00:07 Blood Pressure 123/76 H 04/07/18 00:07 O2 Sat (%) 93 04/07/18 00:07 O2 Delivery Mode Room Air Allergies/Adverse Reactions: No Known Allergies Allergy (Unverified 01/12/19 00:06) Home Medications: Medication Instructions Recorded Fluphenazine 25 Mg/Ml 25 mg IM .[id number] 03/07/18 Clotrimazole/Betamet Diprop 1 ana TP BID cream 04/02/18 [Lotrisone Cream (*)] Mineral Oil/Pet Hy-Phl [Aquaphor 1 ana TP BID jar 04/02/18 Ointment (*)] Prolixin 1 MG (*) 04/07/18 Medical Decision Making Differential Diagnosis: 57-year-old man with schizophrenia on Prolixin, homelessness, presents brought in by ambulance from the crisis Center on an M1 hold placed by mental health worker there. He was recently released from [address] [place] [address] and has had increased hallucinations, delusions, labile mood and will require readmission. They have advised us that he does not need any laboratory testing today. He will be monitored in the emergency department overnight. 6:13 a.m.- Patient has been stable throughout my shift. He is awaiting placement at [address] [place] [address]. He will be signed out to the oncoming provider Dr. Cosme. ( Yvonne Dee) Other Provider: Patient has been accepted to [facility] for inpatient care. (Jaquan Cosme) - Data Points Laboratory Results: Laboratory Results 04/07/18 10:12 04/07/18 04/07/18 10:12 10:12 WBC 3.92 10^3/uL 10^3/uL (3.80-9.50) RBC 5.06 10^6/uL 10^6/uL (4.40-6.38) Hgb 14.6 g/dL g/dL (13.7-17.5) Hct 43.6 % % (40.0-51.0) MCV 86.2 fL fL (81.5-99.8) MCH 28.9 pg pg (27.9-34.1) MCHC 33.5 g/dL g/dL (32.4-36.7) RDW 12.9 % % (11.5-15.2) Plt Count 196 10^3/uL 10^3/uL (150-400) MPV 8.8 fL fL (8.7-11.7) Neut % (Auto) 61.7 % % (39.3-74.2) Lymph % (Auto) 20.2 % % (15.0-45.0) [place] % (Auto) 12.5 % % (4.5-13.0) Eos % (Auto) 4.3 % % (0.6-7.6) Baso % (Auto) 0.8 % % (0.3-1.7) Nucleat RBC Rel Count 0.0 % % (0.0-0.2) Absolute Neuts (auto) 2.42 10^3/uL 10^3/uL (1.70-6.50) Absolute Lymphs (auto) 0.79 10^3/uL L 10^3/uL (1.00-3.00) Absolute Monos (auto) 0.49 10^3/uL 10^3/uL (0.30-0.80) Absolute Eos (auto) 0.17 10^3/uL 10^3/uL (0.03-0.40) Absolute Basos (auto) 0.03 10^3/uL 10^3/uL (0.02-0.10) Absolute Nucleated RBC 0.00 10^3/uL 10^3/uL (0-0.01) Immature Gran % 0.5 % % (0.0-1.1) Immature Gran # 0.02 10^3/uL 10^3/uL (0.00-0.10) Sodium Pending Potassium Pending Chloride Pending Carbon Dioxide Pending Anion Gap Pending BUN Pending Creatinine Pending Estimated GFR Pending Glucose Pending Calcium Pending Salicylates Pending Acetaminophen Pending Ethyl Alcohol Pending Departure - Departure Disposition: Other Psych, Not [facility] Clinical Impression: Acute psychosis Schizophrenia Qualifiers: Schizophrenia type: unspecified Qualified Code(s): F20.9 - Schizophrenia, unspecified Condition: Fair Referrals: Patient,NotPresent [Unknown] - As per Instructions
[2018-04-07 10:36] LABS: PLATELET COUNT 196 10^3/uL (150-400)
[2018-04-07 10:53] VITALS: BP 118/75
== END 2018-04-07 10:57 ==
LOC: EDUNIT# → EEVIPCON 23:57
DX: F20.9 Schizophrenia, unspecified (principal); Z59.0 Homelessness; Z79.899 Other long term (current) drug therapy
CPT/HCPCS: G0480

== ENCOUNTER 2018-04-27 16:02 | Inpatient (IN) | payer OTHER ==
--- NOTE | 2018-04-27 16:37 | EDPHY ---
H & P Stated Complaint: Hx Fx tooth L lower, swelling last night Time Seen by Provider: 04/27/18 16:36 - Personal History Current Tetanus/Diphtheria Vaccine: Yes Tetanus Vaccine Date: 2010 - Medical/Surgical History Hx Asthma: No Hx Chronic Respiratory Disease: No Hx Diabetes: No Hx Cardiac Disease: No Hx Renal Disease: No Hx Cirrhosis: No Hx Alcoholism: No Hx HIV/AIDS: No Hx Splenectomy or Spleen Trauma: No Other PMH: Schizophrenia. hernia repair - Social History Smoking Status: Current every day smoker Constitutional: Initial Vital Signs Temperature (C) 36.2 C 04/27/18 16:10 Heart Rate 106 H 04/27/18 16:10 Respiratory Rate 18 04/27/18 16:10 Blood Pressure 130/82 H 04/27/18 16:10 O2 Sat (%) 96 04/27/18 16:10 O2 Delivery Mode Room Air Allergies/Adverse Reactions: No Known Allergies Allergy (Verified 04/27/18 16:09) Home Medications: Medication Instructions Recorded Fluphenazine 25 Mg/Ml 25 mg IM .[id number] 03/07/18 Clotrimazole/Betamet Diprop 1 ana TP BID cream 04/02/18 [Lotrisone Cream (*)] Mineral Oil/Pet Hy-Phl [Aquaphor 1 ana TP BID jar 04/02/18 Ointment (*)] Prolixin 1 MG (*) 04/07/18 Medical Decision Making - Diagnostics Imaging Results: Imaging Impressions Face CT 04/27/18 16:39 Impression: 1. Significant cellulitis of the left face, down to the upper neck, without underlying cortical disruption or focal abscess at this time. 2. Soft tissue swelling most likely is cavities in the last three teeth of the left lower jaw. Findings and recommendations discussed with Jaquan Cosme MD, at 5:24 PM, 2018. Final report concurs with initial preliminary interpretation. Imaging: Discussed imaging studies w/ marketing production coordinator Radiologist, I viewed and interpreted images myself ED Course/Re-evaluation: CHIEF COMPLAINT: Left facial swelling HISTORY OF PRESENT ILLNESS: 57-year-old gentleman with a history of left facial swelling which started sometime last night and progressed tremendously today. He has a bad left 1st lower molar and he thinks that is the source. He is having some mild fevers. His face is red. It is quite painful and swollen. He has had infected teeth in the past. REVIEW OF SYSTEMS: A comprehensive 10 system review of systems is otherwise negative aside from elements mentioned in the history of present illness and medical decision making. PHYSICAL EXAM: HR, BP, O2 Sat, RR. Temp noted General Appearance: Alert, well hydrated, appropriate, and non-toxic appearing. Head: Atraumatic without scalp tenderness or obvious injury Eyes: Pupils equal, round, reactive to light and accommodation, EOMI, no trauma , no injection. Ears: Clear bilaterally, no perforation, normal landmarks Nose: Atraumatic, no rhinorrhea, clear. Throat: This patient has significant left facial swelling I cannot determine whether it is cellulitic or an abscess. It is associated with the left lower 1st molar. normal tonsils, mucus membranes moist. Neck: Supple, nontender, no lymphadenopathy. Respiratory: No retractions, no distress, no wheezes, and no accessory muscle use. Lungs are clear to auscultation bilaterally. Cardiovascular: Regular rate and rhythm, no murmurs, rubs, or gallops. Good capillary refill all extremities. Gastrointestinal: Abdomen is soft, nontender, non-distended, no masses, no rebound, no guarding, no peritoneal signs. Musculoskeletal: Normal active ROM of all extremities, atraumatic. Neurological: Alert, appropriate, and interactive. The patient has non-focal cranial nerves, motor, sensory, and cerebellar exam. Skin: No rashes, good turgor, no nodules on palpation. Past medical history: Psychiatric disorders Past surgical history: Noncontributory Family history: Noncontributory Social history: Single, not employed, denies abuse of drugs or alcohol DIAGNOSTICS/PROCEDURES/CRITICAL CARE TIME: Study: Maxillofacial CT with IV contrast Indication: Left facial swelling abscess versus cellulitis Results: CT scan of the face was obtained. The results of the study are no abscess, soft tissue swelling. The study was read by the radiologist, Dr. Brown. I viewed the images myself on the PACS system. DIFFERENTIAL DIAGNOSIS: Includes but is not limited to: Subcutaneous abscess, dental abscess, facial cellulitis, carbuncle, furuncle MEDICAL DECISION MAKING: This patient has significant left facial swelling associated with a rotten 1st left lower molar. Am giving this patient Cefoxitin 1 g IV to start with. While I am waiting for the CT scan to see if this patient will require surgical intervention verses antibiotic treatment only. This patient is not systemically ill CT does not show abscess, just soft tissue swelling indicating cellulitis. Patient may require admission due to social situation. Reassessed patient and discussed findings. He is currently homeless. Recommended admission to ensure adequate care and follow up. He agrees with this plan. Spoke with hospitalist service. Dr. Wu accepts admission. - Data Points Laboratory Results: 04/27/18 16:47 POC Hgb 15.3 gm/dL gm/dL (13.7-17.5) POC Hct 45 % % (40-51) POC Sodium 140 mEq/L mEq/L (135-145) POC Potassium 3.7 mEq/L mEq/L (3.3-5.0) POC Chloride 104 mEq/L mEq/L (97-110) POC Total CO2 20 mEq/L L mEq/L (22-31) POC BUN 12 mg/dL mg/dL (7-23) POC Creatinine 0.9 mg/dL mg/dL (0.7-1.3) POC Glucose 108 mg/dL H mg/dL (70-100) Medications Given: Discontinued Medications Cefoxitin Sodium 1 gm/ Sodium (Chloride) 50 mls @ 200 mls/hr IV EDNOW ONE PRN Reason: Protocol Stop: 04/27/18 16:53 Last Admin: 04/27/18 17:12 Dose: 50 mls Point of Care Test Results: Chemistry 04/27/18 16:47 POC Sodium 140 mEq/L mEq/L (135-145) POC Potassium 3.7 mEq/L mEq/L (3.3-5.0) POC Chloride 104 mEq/L mEq/L (97-110) POC Total CO2 20 mEq/L L mEq/L (22-31) POC BUN 12 mg/dL mg/dL (7-23) POC Creatinine 0.9 mg/dL mg/dL (0.7-1.3) POC Glucose 108 mg/dL H mg/dL (70-100) ISTAT H&H 04/27/18 16:47 POC Hgb 15.3 gm/dL gm/dL (13.7-17.5) POC Hct 45 % % (40-51) Departure - Departure Disposition: [facility] Inpatient Acute Clinical Impression: Cellulitis Qualifiers: Site of cellulitis: face Qualified Code(s): L03.211 - Cellulitis of face Condition: Fair
[2018-04-27] MEDS ORDERED: cefOXitin SODIUM 1 GM in NS 50 ML IV ONE (16:39)
[2018-04-27] MEDS ORDERED: IOHEXOL 300 mgI/ML (OMNIPAQUE) 150 ML BTL IV ONE (16:42)
[2018-04-27] MEDS ORDERED: ONDANSETRON 4 MG/2 ML VIAL IVP PRN (19:04)
[2018-04-27] MEDS ORDERED: ONDANSETRON DISINTEGRATING 4 MG TAB PO PRN (19:04)
--- NOTE | 2018-04-27 19:08 | PDGENHP ---
<Suzette Blanc - Last Filed: 04/27/18 19:25> History and Physical - Chief Complaint Left sided facial swelling - History of Present Illness This is a 57 y/o male presenting with left sided facial swelling, starting last night around 8:00pm and has progressed significantly today. He thinks it is his lower 1st molar that is the source and cause of swelling and pain. He denies any drainage in his mouth, no foul tasting substance. He has not seen a dentist in awhile. Denies fevers, chills, nausea, vomiting, difficulty swallowing. No chest pains, palpitations or shortness of breath. Maxillofacial CT w/contrast reveal no abscess and soft tissue swelling indicating cellulitis. Overall, his face appears red. He is being admitted for antibiotics and monitoring. Past Medical/Surgical History 1. Schizophrenia 2. Hernia repair Social 1. Homeless 2. Smokes a pack of cigarettes/day, smoke cannabis. Denies etoh. History Information - Allergies/Home Medication List Allergies/Adverse Reactions: No Known Allergies Allergy (Verified 04/27/18 16:09) Home Medications: Fluphenazine Decanoate 25 mg IM Q21D 04/27/18 [Last Taken 04/17/18] I have personally reviewed and updated: family history, medical history, social history, surgical history Past Medical History: See HPI list - Surgical History Additional surgical history: See HPI list - Family History Positive for: non-pertinent - Social History Smoking Status: Current every day smoker Alcohol Use: None Drug Use: Marijuana Review of Systems Review of Systems: ROS: 10pt was reviewed & negative except for what was stated in HPI & below Constitutional: Reports: no symptoms EENMT: Reports: mouth pain, mouth swelling Cardiac: Reports: no symptoms Respiratory: Reports: no symptoms Gastrointestinal: Reports: no symptoms Genitourinary: Reports: no symptoms Muscolosketal: Reports: no symptoms Skin: Reports: no symptoms Neurological: Reports: no symptoms Hematologic/Lymphatic: Reports: no symptoms Immunologic/Allergy: Reports: no symptoms Physical Exam Physical Exam: Lab data and imaging were reviewed Temp Pulse Resp BP Pulse Ox 37.3 C 83 16 138/87 H 95 04/27/18 18:12 04/27/18 18:12 04/27/18 18:12 04/27/18 18:12 04/27/18 18:12 Constitutional: no apparent distress, appears nourished, uncomfortable Eyes: PERRL, anicteric sclera, EOMI Ears, Nose, Mouth, Throat: moist mucous membranes, hearing normal, ears appear normal, no oral mucosal ulcers, poor dentition Cardiovascular: regular rate and rhythym, no murmur, rub, or gallop, No edema Peripheral Pulses: 2+: dorsalis-pedis (R) (Radial 2+), dorsalis-pedis (L) ( Radial 2+) Respiratory: no respiratory distress, no rales or rhonchi, clear to auscultation Gastrointestinal: normoactive bowel sounds, soft, non-tender abdomen, no palpable masses Genitourinary: no bladder fullness, no bladder tenderness Skin: warm, normal color, no rashes or abrasions, no fluctuance, erythema ( Facial), No mottled Musculoskeletal: full muscle strength, no muscle tenderness, normal joint ROM, no joint effusions Neurologic: AAOx3, sensation intact bilaterally, CN II-XII Intact Psychiatric: interacting appropriately, not anxious, not encephalopathic, thought process linear Lymph, Heme, Immunologic: no cervical LAD, no supraclavicular LAD Lab Data & Imaging Review POC Hgb 15.3 gm/dL (13.7-17.5) 04/27/18 16:47 POC Hct 45 % (40-51) 04/27/18 16:47 POC Sodium 140 mEq/L (135-145) 04/27/18 16:47 POC Potassium 3.7 mEq/L (3.3-5.0) 04/27/18 16:47 POC Chloride 104 mEq/L (97-110) 04/27/18 16:47 POC Total CO2 20 mEq/L (22-31) L 04/27/18 16:47 POC BUN 12 mg/dL (7-23) 04/27/18 16:47 POC Creatinine 0.9 mg/dL (0.7-1.3) 04/27/18 16:47 POC Glucose 108 mg/dL (70-100) H 04/27/18 16:47 Assessment & Plan Plan: 57 y/o male pt presents with left side facial edema, suspect cause from eroded lower tooth. Hemodynamically stable. Afebrile. # Left sided facial swelling -Received Mefoxin in ED; will use Unasyn Q6H moving forward -Continue to monitor -Pain management with Tylenol, ice packs -Anti-emetics PRN -Recommend pt to f/u as an outpatient to dentist #Homelessness -Case management to evaluate #Schizophrenia -Receives Fluphenazine decanoate from [facility] every 3 weeks. His next dose is Monday. Will hold medication for now. He will most likely be discharged before Monday where he may receive this medication at [facility]. Diet: Regular Code: Full Dispo: Admit to obs VTE ppx: May ambulate ad german in room <Oscar Wu - Last Filed: 04/27/18 19:34> History and Physical - History of Present Illness Review of Systems Review of Systems: Physical Exam Physical Exam: Temp Pulse Resp BP Pulse Ox 37.3 C 83 16 138/87 H 95 04/27/18 18:12 04/27/18 18:12 04/27/18 18:12 04/27/18 18:12 04/27/18 18:12 Lab Data & Imaging Review POC Hgb 15.3 gm/dL (13.7-17.5) 04/27/18 16:47 POC Hct 45 % (40-51) 04/27/18 16:47 POC Sodium 140 mEq/L (135-145) 04/27/18 16:47 POC Potassium 3.7 mEq/L (3.3-5.0) 04/27/18 16:47 POC Chloride 104 mEq/L (97-110) 04/27/18 16:47 POC Total CO2 20 mEq/L (22-31) L 04/27/18 16:47 POC BUN 12 mg/dL (7-23) 04/27/18 16:47 POC Creatinine 0.9 mg/dL (0.7-1.3) 04/27/18 16:47 POC Glucose 108 mg/dL (70-100) H 04/27/18 16:47 Assessment & Plan Assessment: Cellulitis (Acute) Plan: I have reviewed chart, personally examined, and discussed case with Kalie Blanc NP and agree with her plan as outlined above. Please see my separate note for additional details.
--- NOTE | 2018-04-27 19:08 | HOSPPROG ---
Hospitalist Progress Note Assessment/Plan: Case discussed with Kalie Blanc NP and I agree with findings in her note with the following exceptions: Briefly, 57yo homeless M with paranoid schizophrenia here with 1-2 days of left facial swelling. He had noticed lower left tooth pain prior to this but hadn't seen a dentist. No fevers/chills. In ED, a CT of his face did not show any abscess but significant facial cellulitis and underlying dental caries. He is not septic. He was given a dose of cefoxitin in the ED. 1. Facial cellulitis 2/2 odontogenic infection: Treat with IV unasyn. Consider oral surgery consultation in AM if worsens. Needs dental follow up. 2. Schizophrenia: No hallucinations currently. Gets anti-psychotic q21 days. VTE ppx: SCDs Code: full Dispo: Admit under observation Objective: Vital Signs Temp Pulse Resp BP Pulse Ox 37.3 C 83 16 138/87 H 95 04/27/18 18:12 04/27/18 18:12 04/27/18 18:12 04/27/18 18:12 04/27/18 18:12 04/26/18 04/27/18 04/28/18 05:59 05:59 05:59 Intake Total 1000 Balance 1000 ICD10 Worksheet Patient Problems: Problems Problem Status Onset Cellulitis Acute Cannabis abuse Acute Onychogryphosis Acute Schizo-affective psychosis Acute Schizophrenia Acute Tinea pedis Acute
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
[2018-04-27] MEDS: ACETAMINOPHEN 325 MG TAB PO PRN (20:11)
[2018-04-28] MEDS: AMPICILLIN/SULBACTAM 3 GM in NS 100 ML IV SCH ×4 (00:38→17:42)
[2018-04-28 05:40] LABS: PLATELET COUNT 228 10^3/uL (150-400)
[2018-04-28] MEDS: ACETAMINOPHEN 325 MG TAB PO PRN (08:37)
--- NOTE | 2018-04-28 13:19 | HOSPPROG ---
Hospitalist Progress Note Assessment/Plan: 57 y/o male pt presents with left side facial edema, suspect cause from eroded lower tooth. Hemodynamically stable. Afebrile. # Left sided facial cellulitis -CT with no e/o abscess -improving on IV abx -cont Unasysn -follow clinical course #Homelessness -Case management to evaluate #Schizophrenia -Receives Fluphenazine decanoate from [facility] every 3 weeks. His next dose is Monday. Will hold medication for now. He will most likely be discharged before Monday Diet: Regular Code: Full Dispo: change to inpatient VTE ppx: SCD's Subjective: thinks face swelling is improving. Afebrile. Objective: Vital Signs Temp Pulse Resp BP Pulse Ox 36.7 C 71 16 118/73 95 04/28/18 11:42 04/28/18 11:42 04/28/18 11:42 04/28/18 11:42 04/28/18 11:42 Laboratory Results 04/28/18 04:29 04/28/18 04:29 04/27/18 04/28/18 04/29/18 05:59 05:59 05:59 Intake Total 1300 Balance 1300 - Physical Exam Constitutional: no apparent distress Eyes: PERRL, EOMI Ears, Nose, Mouth, Throat: moist mucous membranes, hearing normal, ears appear normal Cardiovascular: regular rate and rhythym, No JVD Respiratory: no respiratory distress, no rales or rhonchi, clear to auscultation Gastrointestinal: normoactive bowel sounds, soft, non-tender abdomen Skin: warm, other (left facial swelling) Neurologic: AAOx3 Psychiatric: interacting appropriately, not anxious, not encephalopathic Lymph, Heme, Immunologic: No petechiae ICD10 Worksheet Patient Problems: Problems Problem Status Onset Cellulitis Acute Cannabis abuse Acute Onychogryphosis Acute Schizo-affective psychosis Acute Schizophrenia Acute Tinea pedis Acute
[2018-04-29] MEDS: AMPICILLIN/SULBACTAM 3 GM in NS 100 ML IV SCH ×5 (00:15→23:57)
--- NOTE | 2018-04-29 10:12 | PDMN ---
Medical Necessity Medical necessity: Pt meets IP criteria as of 04/28/2018 per and MCG M-70 ( cellulitis); los > 2 mn for ongoing tx and management of facial cellulitis in the setting of schizophrenia and homelessness; requiring IV ABX, medication management, pain management and case management.
--- NOTE | 2018-04-29 11:56 | HOSPPROG ---
Hospitalist Progress Note Assessment/Plan: 57 y/o male pt presents with left side facial edema, suspect cause from eroded lower tooth. Hemodynamically stable. Afebrile. # Left sided facial cellulitis -CT with no e/o abscess -improving on IV abx -cont Unasysn. #Homelessness -Case management to evaluate #Schizophrenia -Receives Fluphenazine decanoate from [facility] every 3 weeks. His next dose is Monday. Will hold medication for now. He will most likely be discharged before Monday Diet: Regular Code: Full Dispo: change to inpatient VTE ppx: SCD's Plan: The cellulitis is improving. Will continue the IV abx for now. He can likely transition soon to oral abx such as Augmentin but I am concerned about compliance. Subjective: face swelling is improving Objective: Vital Signs Temp Pulse Resp BP Pulse Ox 37.2 C 82 16 123/81 H 92 04/29/18 07:53 04/29/18 07:53 04/29/18 07:53 04/29/18 07:53 04/29/18 07:53 04/28/18 04/29/18 04/30/18 05:59 05:59 05:59 Intake Total 700 Output Total 2 Balance 698 - Physical Exam Constitutional: no apparent distress Eyes: PERRL, EOMI Ears, Nose, Mouth, Throat: moist mucous membranes, hearing normal Cardiovascular: regular rate and rhythym, No edema Respiratory: no respiratory distress, no rales or rhonchi, clear to auscultation Gastrointestinal: normoactive bowel sounds, soft, non-tender abdomen Skin: warm, other (Left facial swelling and erythema are significantly improved) Neurologic: AAOx3 Psychiatric: interacting appropriately, not anxious, not encephalopathic Lymph, Heme, Immunologic: No petechiae ICD10 Worksheet Patient Problems: Problems Problem Status Onset Cellulitis Acute Cannabis abuse Acute Onychogryphosis Acute Schizo-affective psychosis Acute Schizophrenia Acute Tinea pedis Acute
[2018-04-30] MEDS: AMPICILLIN/SULBACTAM 3 GM in NS 100 ML IV SCH ×2 (05:24→12:22)
[2018-04-30 08:23] VITALS: BP 125/64
--- NOTE | 2018-04-30 11:22 | HOSPPROG ---
Hospitalist Progress Note Assessment/Plan: 57 y/o male pt presents with left side facial edema, suspect cause from eroded lower tooth. Hemodynamically stable. Afebrile. # Left sided facial cellulitis -CT with no e/o abscess -improving on IV abx -change unasyn to augmentin. complete 14 day course given severity of infection. needs to see a dentist to have teeth addressed immediately. -follow clinical course #Homelessness -Case management to evaluate #Schizophrenia -Receives Fluphenazine decanoate from [facility] every 3 weeks. His next dose is Monday. Will hold medication for now. He will most likely be discharged before Monday Subjective: no pain. swelling substantially improved. Objective: Vital Signs Temp Pulse Resp BP Pulse Ox 36.6 C 74 18 125/64 H 92 04/30/18 08:00 04/30/18 08:00 04/30/18 08:00 04/30/18 08:00 04/30/18 08:00 04/29/18 04/30/18 05/01/18 05:59 05:59 05:59 Intake Total 700 670 Output Total 2 Balance 698 670 - Physical Exam Constitutional: no apparent distress, appears nourished, not in pain Eyes: PERRL, anicteric sclera, EOMI Ears, Nose, Mouth, Throat: moist mucous membranes, hearing normal, ears appear normal, no oral mucosal ulcers, other (still some swelling on left face, no erythema. obviously rotten molars in mouth on right lower side of mouth. ) Cardiovascular: regular rate and rhythym, no murmur, rub, or gallop Respiratory: no respiratory distress, no rales or rhonchi, clear to auscultation Gastrointestinal: normoactive bowel sounds, soft, non-tender abdomen, no palpable masses Genitourinary: no bladder fullness, no bladder tenderness, no renal bruits Skin: no rashes or abrasions, no fluctuance, no induration Musculoskeletal: full muscle strength, no muscle tenderness, normal joint ROM Neurologic: AAOx3, sensation intact bilaterally Psychiatric: interacting appropriately, not anxious, not encephalopathic, thought process linear Lymph, Heme, Immunologic: no cervical LAD, no supraclavicular LAD ICD10 Worksheet Patient Problems: Problems Problem Status Onset Cannabis abuse Acute Cellulitis Acute Onychogryphosis Acute Schizo-affective psychosis Acute Schizophrenia Acute Tinea pedis Acute
--- NOTE | 2018-04-30 13:06 | PDDCSUM ---
Discharge Summary Discharge Summary: Discharge diagnosis Facial cellulitis schizophrenia Chris Dove is a 57 year old homeless gentleman with pmh of schizophrenia who was admitted with a facial cellulitis. A CT was obtained in the ER which showed cellulitis of the mouth but no abscess and no invasion of the soft tissue of the jaw or spaces below that. He was started on unasyn and responded well. His swelling improved and his pain resolved. On Sunday 04/30 patient noted that in the morning he needed to get his Fluphenazine shot and was anxious to be able to be discharged for this. I discussed with him that I could transition to oral antibiotics but he had to be strictly compliant to ensure the infection was cleared. He agreed to do so, and so was converted to oral augmentin 875 bid to complete a 14 day course. discharge medications Augmentin 875 BID for 10 more days.
--- NOTE | 2018-04-30 15:04 | ASMTDCNOTE ---
Case Management Discharge Discharge Order Complete? Answers: Yes Patient to Obtain Answers: Other Notes: MAP - [facility]- [place] Medications Transportation Arranged Answers: Bus Tokens Discharge Comments Notes: Patient is discharging today. reserved a half-way bed and the patient states he already has bus tokens. We mapped his ABX with [employer] so patient can finish the course of treatment. Patient was given [facility] phone number so he can make a dental appointment. No further needs. Date Signed: 04/30/2018 03:03 PM Electronically Signed By:Batsheva Watson LCSW
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
== END 2018-04-30 15:00 | disposition home or self-care (01) | DRG 603 ==
LOC: F3E 18:08 → OBSVTOIN 04-28 13:15
PROVIDERS: ADMIT Internal Medicine; ATTEND Internal Medicine
DX: L03.211 Cellulitis of face (principal); F20.9 Schizophrenia, unspecified; Z59.0 Homelessness; Z72.0 Tobacco use
CPT/HCPCS: 82435-PO; 82565-PO; 82947-PO; 84132-PO; 84295-PO; 84520-PO; 85014-ER; 96374; G0378; J0295; J0694; Q9967